=== PATIENT | male | born 1965 | race Caucasian/White ===

== ENCOUNTER → 2016-03-14 | Outpatient (CLI) | payer OTHER ==
[~2016-03-14] MED LIST: CTP2 PO; HYDC25 PO; LISI-461 PO
[2016-03-14 12:17] LABS: BASO % 0.3 %; BASO ABS # 0.03 K/uL (0-0.2); COMPLETE YES; EOS % 3.3 %; HEMATOCRIT 41.2 % (42-52); IG% 0.3 %; LYMPH ABS # 2.67 K/uL (1.2-3.4); MEAN CELL VOLUME 82.7 fL (80-100); MEAN CORPUSCULAR HEMOGLOBIN 28.1 pg (25-34); MEAN PLATELET VOLUME 11.1 fL (7.4-10.4); MONO % 4.9 %; NEUT % 62.2 %; PLATELET COUNT 303 K/uL (130-400); RED BLOOD COUNT 4.98 M/uL (4.7-6.1); WHITE BLOOD COUNT 9.21 K/uL (4.8-10.8)
[2016-03-14 12:38] LABS: URINE APPEARANCE CLEAR (CLEAR); URINE BILIRUBIN NEG (NEG); URINE COLOR YELLOW; URINE EPITHELIAL CELL AUTO 0-5 /lpf (0-5); URINE NITRITE NEG (NEG); URINE PH 5.5 (4.5-7.5); URINE SPECIFIC GRAVITY 1.012 (1.000-1.030); UROBILINOGEN NEG (NEG); ZZUR CULT IF INDIC CLEAN CATCH NO
[2016-03-14 12:42] LABS: MANUAL MICROSCOPIC REQUIRED? NO; REVIEW REQ? NO
[2016-03-14 13:24] LABS: ESTIMATED AVERAGE GLUCOSE 183 mg/dl; HA1C FLAG Normal (Normal)
== END | disposition home or self-care (01) ==
LOC: C.LAB 10:48
PROVIDERS: ATTEND Family Medicine
DX: I10 Essential (primary) hypertension (principal); E11.9 Type 2 diabetes mellitus without complications; E78.5 Hyperlipidemia, unspecified; Z12.5 Encounter for screening for malignant neoplasm of prostate

== ENCOUNTER → 2016-05-25 | Outpatient (CLI) | payer OTHER ==
--- NOTE | 2016-05-26 06:17 | PAP/PSG TECHNICIAN REPORT ---
[facility] Harbor Master Polysomnogram Report Study name: None Report date: 05/26/2016 Study date: 05/25/2016 Referring Physician: DR. RODRIGUEZ Name: MARY COSTA Interpreting Physician: Jose Santos D.O. Date of : 1965 Harbor Master: Mark Christian RPSGT. Sex: Male Age: 50 StudyType: PSG Weight: 196 lbs Height: 50 years, Height 5' 9" BMI: 28.94 Medications: PAROXETINE HCL 20 MG, LORAZEPAM 0.5 MG, IMITREX 100 MG, AMBIEN 10 MG, METFORMIN HCL 500 MG, GLUCOTROL 5 MG, SIMVASTATIN 40 MG, IBUPROFEN, LISINOPRIL 5 MG Patient History PATIENT HAS HISTORY OF SNORING, WITNESSED APNEAS AND BODY MOVEMENTS AT NIGHT. SOMETIMES, HE EXPERIENCES HEADACHES DURING THE DAY. HE IS HERE TODAY FOR AN EVALUATION OF COLLIN. ESS = 2 RM 3 Parameters Monitored NPSG: E1-M2, E2-M1, Fp1-M2, Fp2-M1, F3-M2, F4-M2, F4-M1, C3-M2, C4-M2, C4-M1, O1-M2, O2-M2, O2-M1, T3-M2, T4-M1, P3-M2, P4-M1, CHIN1, CHIN2, HR, EKG, Legs, PFLOW, SNOR, FLOW, CFLOW, Tidal Volume, THOR, ABDO, SpO2, PLTH, CPRESS, ETCO2 Wave, ETCO2, pH Sleep Architecture Sleep Stages Time at Lights Off 10:26:12 PM STAGES Time (min.) TST (%) Time at Lights On 5:16:42 AM Wake 44.5 -- Total Recording Time (TRT) 411.00 min. N1 21.5 6 Total Sleep Period (TSP) 407.5 min. N2 240.0 66 Total Sleep Time (TST) 366.0min. N3 37.5 10 Awake Time 45.0 min. REM 67.0 18 Wake after Sleep Onset 42.0 min. Sleep Efficiency (SE) 89 % Sleep Onset Latency (JOSE LUIS) 2.5 min. Number of Stage 1 Shifts None Awakenings 22 Stage Changes 76 Number of REM periods 5 REM 67.0 18 REM Latency 67.5 min. NREM 299.0 82 Body Position Analysis Supine Right Left Side Prone Vertical Total Sleep Time (min.) 410.5 0.0 0.0 0.00 0.0 0.0 Total Sleep Time (%) 100% 0% 0% 0 0% N/A% Total Sleep Time REM (min.) 67.0 0.0 0.0 None 0.0 0.0 Total Sleep Time NREM (min.) 299.0 0.0 0.0 None 0.0 0.0 Intermittent Wake (min.) 44.5 0.0 0.0 None 0.0 0.0 Total Sleep Period (%) 100% None None None None None Arousals Myoclonus (PLM) * Events Count Index Events Count Index Spontaneous 28 5 Events Awake (PLMW) 52 70.1 Respiratory 18 3.3 Events Asleep w/ Arousal (PLMA) 6 1.0 PLM 6 1 Events Asleep w/o Arousal (PLMS) 67 11.0 Snoring 2 0 Total Asleep 73 12.0 Total 54 9 Total 125 18 Respiratory Analysis * CA OA MA CH H RERA Total Count 12 0 0 0 114 0 126 Index 2.0 0.0 0.0 0 18.7 0 20.7 Mean Duration 17.2 0.0 0.0 0.00 17.4 0.0 17.4 Longest Duration 28.0 0.0 0.0 0.00 0.0 0.0 46.0 Respiratory Event Summary Total Supine ~Supine Right Left Prone REM NREM Apneas Count 12 12 N/A N/A N/A N/A 0 12 Index 2.0 2 N/A N/A N/A N/A 0 2 Hypopneas (4% Desat) Count 114 114 N/A N/A N/A N/A 49 65 Index 18.7 18.7 N/A N/A N/A N/A 43.9 13.0 Apneas & All Hypopneas Count 126 126 N/A N/A N/A N/A 49 77 Index 20.7 21 N/A N/A N/A N/A 43.9 15.5 Respiratory Events (Special Services Director+All Hyp+RERA) Count 126 126 N/A N/A N/A N/A 49 77 Index 20.7 21 N/A N/A N/A N/A 43.9 15.5 Respiratory Related Arousal Count 18 126 N/A N/A N/A N/A 4 16 Index 3.3 3 N/A N/A N/A N/A 4 3 Snoring Analysis Supine Right Left Prone REM NREM Total Snore duration 3.6 min Snores count 123 N/A N/A N/A 98 25 123 Snore mean duration 1.8 Sec Snores index 20 N/A N/A N/A 87.8 5.0 20.2 TST with snoring (%) 1.0% Desaturation Event Summary: Minimum %SpO2 Event Count Mean/Min/Max Duration(sec.) Desaturation Index % Time In Bed > 90 115 18.1 / 6.8 / 59.5 97.6 17.4 86 - 90 97 18.7 / 7.0 / 59.0 20.5 70.2 81 - 85 0 N/A 0.0 12.2 76 - 80 0 N/A 0.0 0.2 71 - 75 0 N/A 0.0 0.0 66 - 70 0 N/A 0.0 0.0 61 - 65 0 N/A 0.0 0.0 56 - 60 0 N/A 0.0 0.0 51 - 55 0 N/A 0.0 0.0 < 50 0 N/A 0.0 0.0 Total REM NREM Awake <50% 0.0 min. 0.0 min. 0.0 min. 0.0 min. 51 - 60% 0.0 min. 0.0 min. 0.0 min. 0.0 min. 61 - 70% 0.0 min. 0.0 min. 0.0 min. 0.0 min. 71 - 80% 0.8 min. 0.8 min. 0.0 min. 0.0 min. 81 - 90% 333.7 min. 57.9 min. 256.9 min. 18.9 min. 91 - 100% 70.7 min. 8.3 min. 42.1 min. 20.4 min. Average 88 88 88 90 Minimum SpO2 78 78 82 83 Desaturation Event Index 22.8 44.8 16.5 36.4 # Desat. Events below 89% 146 49 77 20 Time(%) with Saturation below 89% 59.1 9.1 47.6 2.4 Time(min.) with Saturation below 89% 239.5 36.9 192.8 9.7 Time (mins) REM (mins) NREM (mins) % of TST SpO2 Below 90% 131 49 N82 76.8 SpO2 Below 88% 42 0 0 42 Heart Rate Analysis Min (bpm) Max (bpm) Average (bpm) Awake 52 91 69 NREM 48 79 61 REM 49 77 62 Overall 48 79 61 Supplemental O2 Values Minimum O2 level: None Value Start Time End Time Harbor Master Comments Mr. Costa slept in the supine position. PAC's noted. Leg movements noted. No bruxism noted. Snoring was noted and scored as a 2 on a scale of 1 through 5. (0=no snoring, 5=snoring loud enough to be heard through a closed door or down the [address] way) Mr. Costa awoke to use the restroom 1 time during the night. Mr. Costa stated I slept as well as I do when I am in my own bed. The final report will be interpreted and signed by a sleep physician. The completed physician report will then be placed in the patient medical record. Therapy (cm H2O) 0 TIB (min.) 410.5 TST (min.) 366.0 Sleep Onset (min.) 2.5 REM Onset From Sleep (min.) 67.5 Sleep Efficiency % 89 Wakefulness (%) 11 Wakefulness (min.) 45.0 NREM 1 (%) 6 NREM 1 (min.) 21.5 NREM 2 (%) 66 NREM 2 (min.) 240.0 NREM 3 (%) 10 NREM 3 (min.) 37.5 REM (%) 18 REM (min.) 67.0 # Arousals 54 Arousal Index 9 # Snore 123 Snore Index 20.2 AHI 20.7 AHI Supine 21 AHI Non-Supine N/A NREM AHI 15.5 REM AHI 43.9 RDI 20.7 # Obstructive Apnea 0 # Central Apnea 12 # Mixed Apnea 0 # Hypopneas 114 RERAs 0 Total Respiratory Events 126 Time Below SpO2 89% (min.) 229.7 Mean NREM SpO2 (%) 88 Mean REM SpO2 (%) 88 Mean Sleep SpO2 (%) 88 Min NREM SpO2 (%) 82 Min REM SpO2 (%) 78 Position Supine (min.) 410.5 Position Non-supine (min.) 0.0 LM Index Sleep 12.0 LM Index NREM 7.4 LM Index REM 32.2 Mean Heart Rate (bpm) 61 Min Heart Rate (bpm) 48
--- NOTE | 2016-05-27 19:01 | POLYSOMNOGRAPH REPORT ---
SLEEP STUDY REPORT The patient is referred by Dr. De La Garza. CLINICAL DATA: The patient is a 50-year-old male. His BMI is 28.94. He has a history of snoring, observed apneas, headaches, and body movements at night. The patient has an Melbeta score of 2. SLEEP ARCHITECTURE: The total sleep period was 407.5 minutes and the total sleep time was 366.0 minutes. The sleep efficiency was borderline normal at 89%. Sleep onset latency was short at 2.5 minutes. REM latency was normal at 67.5 minutes. Wake after sleep onset was 42 minutes. Sleep consisted of stage N1 6%, stage N2 66%, stage III 10%, stage REM 18%. AROUSAL DATA: The patient had a total of 54 arousals including 28 spontaneous arousals, 18 respiratory arousals, 6 PLM arousals, and N2 snoring arousals. The arousal index is 9. PERIODIC LIMB MOVEMENTS DATA: The patient had a total of 73 periodic limb movements of sleep for an index of 12.0. There were only 6 arousals associated with these periodic limb movements for a PLM arousal index of 1.0. RESPIRATORY DATA: The patient had a total of 126 respiratory events including 12 central apneas and 114 hypopneas. The hypopneas were scored according to the 4% desaturation rule. The apnea-hypopnea index was moderately elevated at 20.7 events per hour and would be consistent with moderate sleep apnea. The longest apnea was 28 seconds. The mean duration of the hypopneas was 17.4 seconds. OXIMETRY DATA: The average saturation during the night was 88%. The minimum saturation was 78%. The patient had a total of 239.5 minutes with saturations less than 89%. ELECTROCARDIOGRAM: The cardiac rhythm was normal sinus. There were a sparse number of PACs. The cardiac rates ranged from 48-79 beats per minute with an average of 61 beats per minute. BLOCK CUBER COMMENTS: Mr. Costa slept in the supine position. PACs were noted. Leg movements noted. Snoring was noted and was scored as a 2 on a scale of 1 through 5. The patient indicated that he slept as well as he usually does when he is in his own bed. IMPRESSION: 1. Obstructive sleep apnea - moderate. COMMENTS: The patient had a near normal sleepy efficiency. He had a modest number of arousals. His apnea was considered moderate. Most of the events were hypopneas. There was oxygen desaturation throughout much of the night. The patient does take Ambien, which would suggest a history of insomnia. He also takes paroxetine and lorazepam and the history supplied is that he has anxiety. RECOMMENDATIONS: 1. It is advised that the patient be treated with nasal CPAP therapy. Alternatives would be to refer him back for an in-lab CPAP titration versus treatment with an auto CPAP. 2. Weight reduction is advised in light of the mild elevation of body mass index at 28.94. 3. It is suggested that the patient avoid sleeping in the supine position. He spent the entire night supine during the sleep study. 4. An alternative to nasal CPAP therapy could include an oral appliance if the patient did not wish to try nasal CPAP. NATE
== END | disposition home or self-care (01) ==
LOC: C.NEUR 08:43
PROVIDERS: ATTEND Family Medicine
DX: G47.30 Sleep apnea, unspecified (principal)

== ENCOUNTER → 2016-07-22 | Outpatient (CLI) | payer OTHER ==
--- NOTE | 2016-07-23 06:20 | PAP/PSG TECHNICIAN REPORT ---
[facility] Feed Mixer Polysomnogram Report Study name: None Report date: 07/23/2016 Study date: 07/22/2016 Referring Physician: Dr. Irving Bonilla Name: MARY COSTA Interpreting Physician: oJse Santos D.O. Date of : 1965 Feed Mixer: Darcy Crowder RPSGT. Sex: Male Age: 50 StudyType: PSG PAP Weight: 196 lbs Height: 50 years, Height 5' 9" BMI: 28.94 Medications: PAROXETINE HCL 20 MG, LORAZEPAM 0.5 MG, IMITREX 100 MG, AMBIEN 10 MG, METFORMIN HCL 500 MG, GLUCOTROL 5 MG, SIMVASTATIN 40 MG, IBUPROFEN, LISINOPRIL 5 MG Patient History 50 yr-old male here for a new CPAP treatment study. He was found to be positive for COLLIN with an AHI of 20.7. His diagnostic study was on 05/25/16. He chose a Aparicio FX nasal pillows mask size medium from [employer]. The test was started on room air and 4 CMH2O. ETCO2 testing was not utilized during this study. Room 1 He requested to have his test sent to Dr. Irving Bonilla. He has switched to this doctor. Parameters Monitored NPSG: E1-M2, E2-M1, Fp1-M2, Fp2-M1, F3-M2, F4-M2, F4-M1, C3-M2, C4-M2, C4-M1, O1-M2, O2-M2, O2-M1, T3-M2, T4-M1, P3-M2, P4-M1, CHIN1, CHIN2, HR, EKG, Legs, PFLOW, SNOR, FLOW, CFLOW, Tidal Volume, THOR, ABDO, SpO2, PLTH, CPRESS, ETCO2 Wave, ETCO2, pH Sleep Architecture Sleep Stages Time at Lights Off 11:02:40 PM STAGES Time (min.) TST (%) Time at Lights On 5:23:40 AM Wake 30.5 -- Total Recording Time (TRT) 381.00 min. N1 15.0 4 Total Sleep Period (TSP) 359.5 min. N2 277.5 79 Total Sleep Time (TST) 350.5min. N3 0.5 0 Awake Time 30.5 min. REM 57.5 16 Wake after Sleep Onset 20.0 min. Sleep Efficiency (SE) 92 % Sleep Onset Latency (JOSE LUIS) 10.5 min. Number of Stage 1 Shifts None Awakenings 8 Stage Changes 39 Number of REM periods 3 REM 57.5 16 REM Latency 79.0 min. NREM 293.0 84 Body Position Analysis Supine Right Left Side Prone Vertical Total Sleep Time (min.) 381.0 0.0 0.0 0.00 0.0 0.0 Total Sleep Time (%) 100% 0% 0% 0 0% N/A% Total Sleep Time REM (min.) 57.5 0.0 0.0 None 0.0 0.0 Total Sleep Time NREM (min.) 293.0 0.0 0.0 None 0.0 0.0 Intermittent Wake (min.) 30.5 0.0 0.0 None 0.0 0.0 Total Sleep Period (%) 100% None None None None None Arousals Myoclonus (PLM) * Events Count Index Events Count Index Spontaneous 22 4 Events Awake (PLMW) 25 49.2 Respiratory 4 0.9 Events Asleep w/ Arousal (PLMA) 6 1.0 PLM 6 1 Events Asleep w/o Arousal (PLMS) 42 7.2 Snoring 0 0 Total Asleep 48 8.2 Total 32 5 Total 73 11 Respiratory Analysis * CA OA MA CH H RERA Total Count 1 0 0 0 3 4 4 Index 0.2 0.0 0.0 0 0.5 1 1.4 Mean Duration 10.4 0.0 0.0 0.00 18.1 19.0 17.6 Longest Duration 10.4 0.0 0.0 0.00 0.0 20.0 22.2 Respiratory Event Summary Total Supine ~Supine Right Left Prone REM NREM Apneas Count 1 1 N/A N/A N/A N/A 0 1 Index 0.2 0 N/A N/A N/A N/A 0 0 Hypopneas (4% Desat) Count 3 3 N/A N/A N/A N/A 1 2 Index 0.5 0.5 N/A N/A N/A N/A 1.0 0.4 Apneas & All Hypopneas Count 4 4 N/A N/A N/A N/A 1 3 Index 0.7 1 N/A N/A N/A N/A 1.0 0.6 Respiratory Events (Finish Opener+All Hyp+RERA) Count 4 8 N/A N/A N/A N/A 1 3 Index 1.4 1 N/A N/A N/A N/A 2.1 1.2 Respiratory Related Arousal Count 4 8 N/A N/A N/A N/A 1 4 Index 0.9 1 N/A N/A N/A N/A 1 1 Snoring Analysis Supine Right Left Prone REM NREM Total Snore duration 0.7 min Snores count 25 N/A N/A N/A 9 16 25 Snore mean duration 1.7 Sec Snores index 4 N/A N/A N/A 9.4 3.3 4.3 TST with snoring (%) 0.2% Desaturation Event Summary: Minimum %SpO2 Event Count Mean/Min/Max Duration(sec.) Desaturation Index % Time In Bed > 90 8 20.2 / 9.5 / 37.2 1.5 85.2 86 - 90 0 N/A 0.0 14.8 81 - 85 0 N/A 0.0 0.0 76 - 80 0 N/A 0.0 0.0 71 - 75 0 N/A 0.0 0.0 66 - 70 0 N/A 0.0 0.0 61 - 65 0 N/A 0.0 0.0 56 - 60 0 N/A 0.0 0.0 51 - 55 0 N/A 0.0 0.0 < 50 0 N/A 0.0 0.0 Total REM NREM Awake <50% 0.0 min. 0.0 min. 0.0 min. 0.0 min. 51 - 60% 0.0 min. 0.0 min. 0.0 min. 0.0 min. 61 - 70% 0.0 min. 0.0 min. 0.0 min. 0.0 min. 71 - 80% 0.0 min. 0.0 min. 0.0 min. 0.0 min. 81 - 90% 56.4 min. 0.3 min. 53.8 min. 2.3 min. 91 - 100% 324.3 min. 57.2 min. 239.2 min. 27.9 min. Average 92 93 92 94 Minimum SpO2 88 90 88 88 Desaturation Event Index 1.3 3.1 0.6 3.9 # Desat. Events below 89% N/A N/A N/A N/A Time(%) with Saturation below 89% 1.0 0.0 0.9 0.1 Time(min.) with Saturation below 89% 3.7 0.0 3.5 0.2 Time (mins) REM (mins) NREM (mins) % of TST SpO2 Below 90% 4 1 N3 6.6 SpO2 Below 88% 0 0 0 0 Heart Rate Analysis Min (bpm) Max (bpm) Average (bpm) Awake 50 85 61 NREM 47 75 54 REM 49 69 57 Overall 47 75 55 Supplemental O2 Values Minimum O2 level: None Value Start Time End Time Feed Mixer Comments Mr. Costa slept only in the supine position. No cardiac arrhythmias or PLMs noted. No bruxism noted. CPAP was initiated at +4 CMH2O and up-titrated to a level of +5 CMH2O, Cflex 2 which nearly eliminated all respiratory events and snoring. A Aparicio Fx nasal pillows mask size medium from [employer] was used during titration He did not wake up to use the restroom during the night. Mr. Costa stated that he slept better than usual. The final report will be interpreted and signed by a sleep physician. The completed physician report will then be placed in the patient medical record. Therapy Event: Therapy (cm H20) 4 5 Total Time at Pressure (min.) 296.2 84.8 TST at Pressure (min.) 276.7 73.8 # Periods 1 1 Sleep Onset (min.) 10.5 0.0 REM Onset (min.) 89.5 2.8 Sleep Efficiency % 93 87 Wakefulness (%) 6.6 13.0 Wakefulness (min.) 19.5 11.0 NREM 1 (%) 4.7 1.2 NREM 1 (min.) 14.0 1.0 NREM 2 (%) 73.7 69.9 NREM 2 (min.) 218.2 59.3 NREM 3 (%) 0.2 0.0 NREM 3 (min.) 0.5 0.0 REM (%) 14.9 15.9 REM (min.) 44.0 13.5 # Arousals 24 8 Arousal Index 5.2 6.5 # Snore 20 5 Snore Index 4.3 4.1 AHI 0.4 1.6 AHI Supine 0.4 1.6 AHI Non-Supine N/A N/A NREM AHI 0.5 1.0 REM AHI 0.0 4.4 RDI 1.3 1.6 # Obstructive 0 0 # Central Ap 0 1 # Mixed 0 0 # Hypopneas 2 1 RERAS 4 0 Total Respiratory Events 6 2 Time Below SpO2 89.00% (min.) 3.5 0.0 Mean NREM SpO2 (%) 92 93 Mean REM SpO2 (%) 93 94 Mean Sleep SpO2 (%) 92 93 Min NREM SpO2 (%) 88 91 Min REM SpO2 (%) 90 90 Position Supine (min.) 276.7 73.8 Position Non-supine (min.) 0.0 0.0 LM Index Sleep 7.6 10.6 LM Index NREM 3.4 5.0 LM Index REM 30.0 35.6 Mean Heart Rate (bpm) 55 54 Min Heart Rate (bpm) 47 49
--- NOTE | 2016-07-25 12:55 | POLYSOMNOGRAPH REPORT ---
DATE OF STUDY: 07/22/2016. REFERRING PHYSICIAN: Dr. Irving Bonilla. CLINICAL DATA: The patient is a 50-year-old male. He had symptoms of snoring, observed apnea, headaches, and increased body movements during sleep. He underwent a first night sleep study on 05/25/2016. This revealed moderate sleep apnea with apnea hypopnea index of 20.7. He is referred back to the sleep disorder center for a trial of nasal CPAP. This was an in-lab CPAP titration. The patient has a BMI of 28.94. SLEEP ARCHITECTURE: The total sleep period is 359.5 minutes. The total sleep time is 350.5 minutes. The sleep efficiency is normal at 92%. The sleep latency was normal at 10.5 minutes. Wake after sleep onset was 20 minutes. The REM latency was normal at 79 minutes. Sleep consisted of stage N1 4%, stage N2 79%, stage N3 0%, and stage REM 16%. It is notable the patient does take paroxetine which can suppress REM sleep. AROUSAL DATA: The patient had a total of 32 arousals including 22 spontaneous arousals, 4 respiratory arousals, 6 PLM arousals. The arousal index was 5. PLM DATA: The patient had a total of 48 periodic limb movements of sleep for an index of 8.2. He had 6 arousals associated with limb movements for a PLM arousal index of 1.0. EKG: The underlying cardiac rhythm was normal sinus. No arrhythmias were noted. The cardiac rates ranged from 47-75 beats per minute with an average of 55 beats per minute. RESPIRATORY DATA: The patient's nocturnal events were treated with nasal CPAP, which was titrated to a final pressure of 5 cm. For the night he had 1 central apnea and 3 hypopneas. Hypopneas were scored according to the 4% desaturation rule. The apnea hypopnea index was 0.7, which would be normal. In addition, he had 4 RERAs. The mean duration of hypopnea was 18.1 seconds and the mean duration of the apnea was 10.4 seconds. OXIMETRY DATA: The average saturation was 92%. The minimum was 88%. He had no time with saturations less than 88%. LINEMAN COMMENTS: Mr. Costa slept only in the supine position. No bruxism noted. CPAP was initiated at 4 cm of water and up titrated to a level of 5 cm with C-Flex 2. This nearly eliminated all respiratory events and snoring. A Aparicio FX nasal pillows mask size medium was utilized. IMPRESSIONS: Moderate obstructive sleep apnea -- resolved with nasal CPAP at 5 cm. COMMENTS: The patient did very well with nasal CPAP. His sleep architecture was near normal. His REM sleep was decreased mildly but this could be related to the fact that he takes paroxetine. His sleep efficiency was normal. His sleep apnea was well resolved at relatively low CPAP pressures. Oxygenation was normal. RECOMMENDATIONS: 1. It is advised that the patient be started on nasal CPAP at 5 cm with C-Flex. 2. It is suggested that he be ordered a [employer] Aparicio FX nasal pillow mask, size medium. 3. It is suggested that the patient try to avoid sleeping in the supine position as typically there is more respiratory events when the patient is supine. 4. The patient has a mild elevation of body mass index. A weight reduction program is advised as even modest weight loss may result in improvement in sleep disordered breathing. 5. The patient should be seen back between day 31 and day 90 after he receives his CPAP. This is insurance requirements. [facility]
== END | disposition home or self-care (01) ==
LOC: C.NEUR 21:00
PROVIDERS: ATTEND Emergency Medicine Emergency Medical Services
DX: G47.33 Obstructive sleep apnea (adult) (pediatric) (principal)

== ENCOUNTER 2022-08-13 15:14 | Inpatient (IN) ==
[2022-08-13] MEDS ORDERED: LORazepam 0.5 MG TAB PO STA (15:55)
[2022-08-13] MEDS ORDERED: OLANZapine 5 MG TABLET PO ONE (15:55)
--- NOTE | 2022-08-13 16:02 | Emergency Department Note ---
Impression & Plan Paranoia (psychosis), Homicidal ideations ED Provider Note NAME: MARY RAE AGE: 56 SEX: M : 1965 ARRIVES VIA: Police Cruiser INFORMANT: Patient, the police ED PROVIDER(S): Sudeep Saucedo DO CHIEF COMPLAINT: Mental health evaluation HPI: The patient is a 56-year-old male who presented to the emergency department for mental health evaluation. The patient arrived with police. The patient presented with a 302 that was written out by police. I evaluated the patient in the mental health section. The patient appears to have very paranoid thoughts and some delusional thought process. The police outlined a long history of int eractions with this gentleman for the last 2 to 3 months. They have investigated many allegations with this patient and have come up with no definite wrongdoing on anyone else's part. This became very frustrating to the patient. The patient made statements that he was going to "take matters into my own hands". For this reason he was brought to the emergency department for further evaluation. The patient at this time denies having any chest pain or difficulty breathing. He denies having any suicidal ideation. ROS: See above HPI for pertinent positives & negatives. A total of 10 systems reviewed and were otherwise negative. PAST MEDICAL HISTORY: See Below PAST SURGICAL HISTORY: See Below FAMILY HISTORY: See Below SOCIAL HISTORY: See Below HOME MEDICATIONS: See Below ALLERGIES: See Below VITALS: See Below PHYSICAL EXAMINATION: GENERAL: The patient is awake and alert. The patient is somewhat anxious appearing. EYES: The conjunctivae are clear. The pupils are round and reactive. EARS, NOSE, MOUTH AND THROAT: The nose is without any evidence of any deformity. NECK: The neck is nontender and supple. RESPIRATORY: Normal respiratory effort is noted there is no evidence of wheezing rhonchi or rales CARDIOVASCULAR: Regular rate and rhythm noted there no murmurs rubs or gallops normal S1 normal S2. GASTROINTESTINAL: The abdomen is soft. Abdomen is nontender. MUSCULOSKELETAL/EXTREMITIES: There is no evidence of gross deformity full range of motion is noted in the hips and shoulders. SKIN: There is no obvious evidence of any rash. There are no petechiae, pallor or cyanosis noted. NEUROLOGIC: Patient is awake alert and oriented x3. Gait was steady. PSYCH: The patient's affect is very animated. The patient makes good eye contact for part of the evaluation but not all. He is currently denying any suicidal ideation. He does admit that there is 1 person in particular that lives near him that may be causing all of his problems. He does admit that he wanted to confront this person. The patient talks about many issues with his computer system and people that have hacked his computer system recently. MEDICAL DECISION MAKING: The patient is a 56-year-old male who presented to the emergency department for mental health evaluation. The patient presented with a 302 petition. The patient does not have very good insight into his overall condition. He has significant paranoia. He has a tangential thought process on my evaluation. I do not feel the patient has the proper insight for a voluntary psychiatric admission at this time. For this reason I will uphold the 302 petition. The patient was treated with medication in the emergency department to try to help his condition. He was reevaluated multiple times. I discussed his condition with the mental-health piano case and bench assembler. Triage Nursing notes reviewed. Prior medical records reviewed Vital Signs: reviewed and remarkable for elevated blood pressure. Differential diagnosis: Mood disorder, infection, hypoglycemia, electrolyte abnormalities, cardiac sources, intracerebral event, toxicologic, trauma, neurologic, as well as other pathologies. ER treatment provided: See below Diagnostics interpreted by me: ECG: none Cardiac Monitoring: An order was placed for continuous cardiac monitoring. The monitor shows a rate of 88 bpm with sinus rhythm. Laboratory studies: As stated above and show below. Imaging studies: See below. Radiographic imaging was reviewed by myself Consultation(s): The patient was evaluated by the mental health piano case and bench assembler. The 302 petition was reviewed with the mental health piano case and bench assembler. The patient was signed out to Dr. Cadet at change of shift. Please see his note for further disposition and treatment. The patient is currently being evaluated by 3 S. Past Med/Surg History Medical History Depression with anxiety Diabetes type 2, controlled Dyslipidemia Hypothyroidism Laceration of head Overweight Vitamin D deficiency Family History Mother Stroke Father Diabetes Other Hypertension Social History Smoking Status: Former smoker Hx Alcohol Use: No Preferred Language: Kyrgyz Communication Ability: Effective marital status: current occupational status: employed Feels Safe at Home: Yes Gender Identity: Male Allergies Allergies Allergy/AdvReac Type Severity Reaction Status Date / Time cat dander Allergy Mild ITHCY/WATERY Verified 08/13/22 19:44 EYES phenobarbital Allergy Mild BUMPS ON Verified 08/13/22 19:44 TONGUE Dust Allergy Mild ITCHY/WATERY Uncoded 09/01/21 14:00 EYES Home Meds Home Medications Medication Instructions Recorded Confirmed aspirin 81 mg tablet,delayed 81 mg PO DAILY 12/12/18 08/13/22 release (Adult Aspirin Regimen) zolpidem 12.5 mg tablet,extended 12.5 mg PO HS 03/28/19 08/13/22 release,multiphase insulin glargine 100 unit/mL (3 19 unit subcut DAILY 09/01/21 08/13/22 mL) subcutaneous pen (Lantus Solostar U-100 Insulin) venlafaxine 75 mg capsule,extended 75 mg PO DAILY 09/01/21 08/13/22 release 24 hr (Effexor XR) Previous Rx's Medication Instructions Recorded blood sugar diagnostic (True #100 ea 04/23/20 Metrix Glucose Test Strip) blood-glucose meter (True Metrix #100 ea 04/23/20 Glucose Meter) Dexcom G6 Transmitter #1 ea 01/30/22 (blood-glucose transmitter) Dexcom G6 Opal Miner (blood-glucose #1 ea 01/31/22 meter,continuous) Dexcom G6 Sensor (blood-glucose #9 ea 01/31/22 sensor) lisinopril 20 mg tablet 20 mg PO DAILY #90 tabs 01/31/22 BD Ultra-Fine Julianna Pen Needle 32 #100 ea 04/10/22 gauge x 5/32" (pen needle, diabetic) Ozempic 0.25 mg or 0.5 mg (2 0.5 mg (0.4 mL) subcut .COMPLEX 05/03/22 mg/1.5 mL) subcutaneous pen #4.5 mL injector (semaglutide) levothyroxine 100 mcg tablet 100 mcg PO DAILY 30 days #30 tabs 05/03/22 atorvastatin 20 mg tablet 20 mg PO QPM #90 tabs 06/05/22 Results & Data (ED) Vital Signs Vital Signs - 24 hr 08/13/22 15:00 08/13/22 15:00 08/13/22 16:00 Temperature 36.1 C L Temperature Source Oral Pulse Rate 88 Pulse Rhythm Regular Respiratory Rate 16 Respiratory Depth Normal Normal Normal Blood Pressure 143/88 H Blood Pressure Mean 106 Pulse Oximetry 98 Oxygen Delivery Method Room Air Room Air Sepsis Recent Fever Within 48 Hours No Sepsis New/Unexplained Change in Mental Status N/A Sepsis Action Taken by Nursing No Action Required 08/13/22 18:00 Temperature Temperature Source Pulse Rate Pulse Rhythm Respiratory Rate Respiratory Depth Normal Blood Pressure Blood Pressure Mean Pulse Oximetry Oxygen Delivery Method Room Air Sepsis Recent Fever Within 48 Hours Sepsis New/Unexplained Change in Mental Status Sepsis Action Taken by Residential Medications Current Medication List: was personally reviewed by me Laboratory Data Attestation: I reviewed the patient's lab results. 08/13/22 15:38 08/13/22 15:38 Lab Results 08/13/22 08/13/22 08/13/22 Range/Units 15:38 15:38 15:38 WBC 6.90 (4.8-10.8) K/ul RBC 4.55 L (4.70-6.10) M/uL Hgb 13.4 L (14.0-18.0) g/dl Hct 40.5 L (42.0-52.0) % MCV 89.0 (80.0-100.0) fL MCH 29.5 (25.0-34.0) pg MCHC 33.1 (32.0-36.0) g/dL RDW Std Deviation 41.8 (36.4-46.3) fL RDW Coeff of Denisse 12.7 (11.5-14.5) % Plt Count 366 (130-400) K/uL MPV 11.3 (9.4-12.4) fL Immature Gran % (Auto) 0.1 % Neut % (Auto) 62.7 % Lymph % (Auto) 26.4 % [place] % (Auto) 7.1 % Eos % (Auto) 2.8 % Baso % (Auto) 0.9 % Neut # (Auto) 4.33 (1.40-6.50) K/uL Lymph # (Auto) 1.82 (1.2-3.4) K/uL [place] # (Auto) 0.49 (0.11-0.59) K/uL Eos # (Auto) 0.19 (0-0.50) K/uL Baso # (Auto) 0.06 (0-0.2) K/uL Immature Gran # (Auto) 0.01 (0.01-0.20) K/uL Sodium 142 (136-145) mmol/L Potassium 3.8 (3.5-5.1) mmol/L Chloride 107 (98-107) mmol/L Carbon Dioxide 29 (21-32) mmol/L Anion Gap 6 (3-11) BUN 13 (6-23) mg/dl Creatinine 0.96 (0.6-1.4) mg/dl Est Cr Clr Drug Dosing 86.9 ml/min Est GFR ( Amer) 102.7 ml/min Est GFR (Non-Af Amer) 88.6 ml/min BUN/Creatinine Ratio 13.5 (10-20) Glucose 178 H (70-99(Fasting)) mg/dl Calcium 9.3 (8.6-10.3) mg/dl Total Bilirubin 0.6 (0.2-1.0) mg/dl AST 30 (13-39) U/L ALT 25 (7-52) U/L Alkaline Phosphatase 64 (34-104) U/L Total Protein 7.4 (6.0-8.3) gm/dl Albumin 4.5 (3.4-5.0) gm/dl Globulin 2.9 (2.5-4.0) gm/dl Albumin/Globulin Ratio 1.6 (0.9-2) TSH 0.140 L (0.300-4.500) uIu/ml Free T4 0.85 (0.61-1.60) ng/dl Urine Color Urine Appearance (Clear) Urine pH (4.5-7.5) Ur Specific [place] (1.000-1.030) Urine Protein (Negative) Urine Glucose (UA) (Negative) Urine Ketones (Negative) Urine Blood (Negative) Urine Nitrite (Negative) Urine Bilirubin (Negative) Urine Urobilinogen (Negative) Ur Leukocyte Esterase (Negative) Urine WBC (Auto) (0-5) /hpf Urine RBC (Auto) (0-4) /hpf U Hyaline Cast (Auto) (0-5) /lpf U Epithel Cells (Auto) (0-5) /lpf Urine Bacteria (Auto) (Negative) Urine Sperm (None Prsent) Salicylates (3.0-30) mg/dl Urine Opiates Screen (Neg) Ur Methadone, Qual (Neg) Acetaminophen (10-30) ug/ml Urine Barbiturates (Neg) Ur Phencyclidine (PCP) (Neg) U Amphetamin/Meth Scrn (Neg) MDMA (Ecstasy) Screen (Neg) U Benzodiazepines Scrn (Neg) Ur Cocaine Metabolite (Neg) U Marijuana (THC) Screen (Neg) Ethyl Alcohol mg/dL (<10.0) mg/dl SARS-CoV-2, RNA, NAAT (NEGATIVE) 08/13/22 08/13/22 08/13/22 Range/Units 15:38 15:38 16:23 WBC (4.8-10.8) K/ul RBC (4.70-6.10) M/uL Hgb (14.0-18.0) g/dl Hct (42.0-52.0) % MCV (80.0-100.0) fL MCH (25.0-34.0) pg MCHC (32.0-36.0) g/dL RDW Std Deviation (36.4-46.3) fL RDW Coeff of Denisse (11.5-14.5) % Plt Count (130-400) K/uL MPV (9.4-12.4) fL Immature Gran % (Auto) % Neut % (Auto) % Lymph % (Auto) % [place] % (Auto) % Eos % (Auto) % Baso % (Auto) % Neut # (Auto) (1.40-6.50) K/uL Lymph # (Auto) (1.2-3.4) K/uL [place] # (Auto) (0.11-0.59) K/uL Eos # (Auto) (0-0.50) K/uL Baso # (Auto) (0-0.2) K/uL Immature Gran # (Auto) (0.01-0.20) K/uL Sodium (136-145) mmol/L Potassium (3.5-5.1) mmol/L Chloride (98-107) mmol/L Carbon Dioxide (21-32) mmol/L Anion Gap (3-11) BUN (6-23) mg/dl Creatinine (0.6-1.4) mg/dl Est Cr Clr Drug Dosing ml/min Est GFR ( Amer) ml/min Est GFR (Non-Af Amer) ml/min BUN/Creatinine Ratio (10-20) Glucose (70-99(Fasting)) mg/dl Calcium (8.6-10.3) mg/dl Total Bilirubin (0.2-1.0) mg/dl AST (13-39) U/L ALT (7-52) U/L Alkaline Phosphatase (34-104) U/L Total Protein (6.0-8.3) gm/dl Albumin (3.4-5.0) gm/dl Globulin (2.5-4.0) gm/dl Albumin/Globulin Ratio (0.9-2) TSH (0.300-4.500) uIu/ml Free T4 (0.61-1.60) ng/dl Urine Color Yellow Urine Appearance Clear (Clear) Urine pH 6.5 (4.5-7.5) Ur Specific [place] 1.018 (1.000-1.030) Urine Protein 1+ H (Negative) Urine Glucose (UA) Negative (Negative) Urine Ketones Trace H (Negative) Urine Blood Negative (Negative) Urine Nitrite Negative (Negative) Urine Bilirubin Negative (Negative) Urine Urobilinogen Negative (Negative) Ur Leukocyte Esterase Negative (Negative) Urine WBC (Auto) 1-5 (0-5) /hpf Urine RBC (Auto) 0-4 (0-4) /hpf U Hyaline Cast (Auto) 1-5 (0-5) /lpf U Epithel Cells (Auto) 10-20 H (0-5) /lpf Urine Bacteria (Auto) Negative (Negative) Urine Sperm Present A (None Prsent) Salicylates < 3.0 L (3.0-30) mg/dl Urine Opiates Screen (Neg) Ur Methadone, Qual (Neg) Acetaminophen < 3 L (10-30) ug/ml Urine Barbiturates (Neg) Ur Phencyclidine (PCP) (Neg) U Amphetamin/Meth Scrn (Neg) MDMA (Ecstasy) Screen (Neg) U Benzodiazepines Scrn (Neg) Ur Cocaine Metabolite (Neg) U Marijuana (THC) Screen (Neg) Ethyl Alcohol mg/dL < 10.0 (<10.0) mg/dl SARS-CoV-2, RNA, NAAT (NEGATIVE) 08/13/22 08/13/22 Range/Units 16:23 16:28 WBC (4.8-10.8) K/ul RBC (4.70-6.10) M/uL Hgb (14.0-18.0) g/dl Hct (42.0-52.0) % MCV (80.0-100.0) fL MCH (25.0-34.0) pg MCHC (32.0-36.0) g/dL RDW Std Deviation (36.4-46.3) fL RDW Coeff of Denisse (11.5-14.5) % Plt Count (130-400) K/uL MPV (9.4-12.4) fL Immature Gran % (Auto) % Neut % (Auto) % Lymph % (Auto) % [place] % (Auto) % Eos % (Auto) % Baso % (Auto) % Neut # (Auto) (1.40-6.50) K/uL Lymph # (Auto) (1.2-3.4) K/uL [place] # (Auto) (0.11-0.59) K/uL Eos # (Auto) (0-0.50) K/uL Baso # (Auto) (0-0.2) K/uL Immature Gran # (Auto) (0.01-0.20) K/uL Sodium (136-145) mmol/L Potassium (3.5-5.1) mmol/L Chloride (98-107) mmol/L Carbon Dioxide (21-32) mmol/L Anion Gap (3-11) BUN (6-23) mg/dl Creatinine (0.6-1.4) mg/dl Est Cr Clr Drug Dosing ml/min Est GFR ( Amer) ml/min Est GFR (Non-Af Amer) ml/min BUN/Creatinine Ratio (10-20) Glucose (70-99(Fasting)) mg/dl Calcium (8.6-10.3) mg/dl Total Bilirubin (0.2-1.0) mg/dl AST (13-39) U/L ALT (7-52) U/L Alkaline Phosphatase (34-104) U/L Total Protein (6.0-8.3) gm/dl Albumin (3.4-5.0) gm/dl Globulin (2.5-4.0) gm/dl Albumin/Globulin Ratio (0.9-2) TSH (0.300-4.500) uIu/ml Free T4 (0.61-1.60) ng/dl Urine Color Urine Appearance (Clear) Urine pH (4.5-7.5) Ur Specific [place] (1.000-1.030) Urine Protein (Negative) Urine Glucose (UA) (Negative) Urine Ketones (Negative) Urine Blood (Negative) Urine Nitrite (Negative) Urine Bilirubin (Negative) Urine Urobilinogen (Negative) Ur Leukocyte Esterase (Negative) Urine WBC (Auto) (0-5) /hpf Urine RBC (Auto) (0-4) /hpf U Hyaline Cast (Auto) (0-5) /lpf U Epithel Cells (Auto) (0-5) /lpf Urine Bacteria (Auto) (Negative) Urine Sperm (None Prsent) Salicylates (3.0-30) mg/dl Urine Opiates Screen Neg (Neg) Ur Methadone, Qual Neg (Neg) Acetaminophen (10-30) ug/ml Urine Barbiturates Neg (Neg) Ur Phencyclidine (PCP) Neg (Neg) U Amphetamin/Meth Scrn Pos H (Neg) MDMA (Ecstasy) Screen Neg (Neg) U Benzodiazepines Scrn Neg (Neg) Ur Cocaine Metabolite Neg (Neg) U Marijuana (THC) Screen Pos H (Neg) Ethyl Alcohol mg/dL (<10.0) mg/dl SARS-CoV-2, RNA, NAAT NEGATIVE (NEGATIVE) Administered Medications Discontinued Medications Lorazepam (Lorazepam 0.5 Mg Tab) 0.5 mg PO NOW STA Stop: 08/13/22 15:56 Last Admin: 08/13/22 16:13 Dose: 0.5 mg Documented By: LUPE Olanzapine (Olanzapine 5 Mg Tablet) 5 mg PO ONE ONE Stop: 08/13/22 15:56 Last Admin: 08/13/22 16:25 Dose: 5 mg Documented By: LUPE Imaging Data Attestation: I personally reviewed and interpreted this imaging study as follows: My Impression: CT of the head was obtained in the emergency department. My interpretation is no intracranial hemorrhage or mass, final report below. Radiologist's Impression: Head CT 08/13/22 15:[address] DOSE: 625.80 mGy.cm HISTORY: Altered mental status. TECHNIQUE: Multiaxial CT images of the head were performed without the use of intravenous contrast. Automated exposure control was utilized for this study. A dose lowering technique was utilized adhering to the principles of ALARA. Comparison: None. Findings: The paranasal sinuses and mastoid air cells are clear. The calvarium and skull base are intact. The ventricles and sulci are within normal limits. There is no mass, hematoma, midline shift, or acute infarct. Impression: No acute intracranial abnormality. ACT 112: Negative or not required by law. Electronically signed by: González Solano M.D. 08/13/2022 4:32 PM Discharge Plan Visit Data Chief Complaint: Mental Health Evaluation Stated Complaint: MENTAL HEALTH EVAL ED Provider: Jeyson Cadet Discharge Problem: Paranoia (psychosis), Homicidal ideations Patient Disposition: Still a Patient Forms Stand Alone Forms: [facility], Suicide Prevention Resources Prescriptions Prescriptions: No Action (DME) blood-glucose meter [True Metrix Glucose Meter] Misc See Rx Instructions .ROUTE .MEDSUPPLY Qty: 100 3RF Rx Instructions: use to test 1 time daily (DME) True Metrix Glucose Test Strip Strip See Rx Instructions .ROUTE .MEDSUPPLY Qty: 100 3RF Rx Instructions: test 1 time daily (DME) Dexcom G6 Transmitter Device See Rx Instructions .MEDSUPPLY Qty: 1 3RF Rx Instructions: Use as directed for continuous glucose monitoring - change every 90 days (DME) Dexcom G6 Opal Miner Misc See Rx Instructions .MEDSUPPLY Qty: 1 0RF Rx Instructions: Use as directed for continuous glucose monitoring (DME) Dexcom G6 Sensor Device See Rx Instructions .MEDSUPPLY Qty: 9 3RF Rx Instructions: Use as directed for continuous glucose monitoring - Change sensor every 10 days lisinopril 20 mg tablet 20 mg PO DAILY Qty: 90 1RF Rx Instructions: Take with 10 mg tab (DME) pen needle, diabetic [BD Ultra-Fine Julianna Pen Needle] 32 gauge x 5/32" n eedle See Rx Instructions [id number] .MEDSUPPLY Qty: 100 0RF Rx Instructions: use 1needle daily levothyroxine 100 mcg tablet 100 mcg PO DAILY 30 Days Qty: 30 3RF Ozempic 0.25 mg or 0.5 mg(2 mg/1.5 mL) pen injector 0.5 mg subcut .COMPLEX Qty: 4.5 0RF Rx Instructions: 0.5 mg subcut once a week; atorvastatin 20 mg tablet 20 mg PO QPM Qty: 90 0RF aspirin [Adult Aspirin Regimen] 81 mg tablet,delayed release (DR/EC) 81 mg PO DAILY zolpidem 12.5 mg tablet,ext release multiphase 12.5 mg PO HS venlafaxine [Effexor XR] 75 mg capsule,extended release 24hr 75 mg PO DAILY Lantus Solostar U-100 Insulin 100 unit/mL (3 mL) insulin pen 19 unit subcut DAILY Rx Instructions: Inject 18-19 units daily Referrals Referrals: Irving Bonilla M.D. [Primary Care Provider] -
[2022-08-13 16:09] LABS: Basophils # (auto) 0.06 K/uL (0-0.2); Basophils % (auto) 0.9 %; Eosinophils # (auto) 0.19 K/uL (0-0.50); Eosinophils % (auto) 2.8 %; Hematocrit (blood only) 40.5 % (42.0-52.0); Hemoglobin 13.4 g/dl (14.0-18.0); Immature Granulocytes # (auto) 0.01 K/uL (0.01-0.20); Immature Granulocytes % (auto) 0.1 %; Lymphocytes # (auto) 1.82 K/uL (1.2-3.4); Lymphocytes % (auto) 26.4 %; Mean Corpuscular Hemoglobin 29.5 pg (25.0-34.0); Mean Corpuscular Hgb Conc 33.1 g/dL (32.0-36.0); Mean Platelet Volume 11.3 fL (9.4-12.4); Monocytes # (auto) 0.49 K/uL (0.11-0.59); Monocytes % (auto) 7.1 %; Neutrophils # (auto) 4.33 K/uL (1.40-6.50); Neutrophils % (auto) 62.7 %; Platelet Count 366 K/uL (130-400); RDW Coefficient of Variation 12.7 % (11.5-14.5); RDW Standard Deviation 41.8 fL (36.4-46.3); Red Blood Count 4.55 M/uL (4.70-6.10)
[2022-08-13 16:25] LABS: Albumin Globulin Ratio 1.6 (0.9-2); Albumin Level 4.5 gm/dl (3.4-5.0); BUN Creatinine Ratio 13.5 (10-20); Bilirubin,Total 0.6 mg/dl (0.2-1.0); Calcium 9.3 mg/dl (8.6-10.3); Creatinine Clr Calc Pharmacy 86.9 ml/min; Est GFR (African American) 102.7 ml/min; Est GFR (Non-African American) 88.6 ml/min; Globulin 2.9 gm/dl (2.5-4.0); Potassium 3.8 mmol/L (3.5-5.1); Total Protein 7.4 gm/dl (6.0-8.3)
--- NOTE | 2022-08-13 16:34 | CT Scan Report ---
HEAD CT NONCONTRAST CT DOSE: 625.80 mGy.cm HISTORY: Altered mental status. TECHNIQUE: Multiaxial CT images of the head were performed without the use of intravenous contrast. A utomated exposure control was utilized for this study. A dose lowering technique was utilized adheri ng to the principles of ALARA. Comparison: None. Findings: The paranasal sinuses and mastoid air cells are clear. The calvarium and skull base are int act. The ventricles and sulci are within normal limits. There is no mass, hematoma, midline shift, or acute infarct. Impression: No acute intracranial abnormality. ACT 112: Negative or not required by law. Electronically signed by: González Solano M.D. 08/13/2022 4:32 PM
[2022-08-13 16:36] LABS: Acetaminophen < 3 ug/ml (10-30); Salicylate < 3.0 mg/dl (3.0-30)
[2022-08-13 16:39] LABS: Thyroid Stimulating Hormone 0.14 uIu/ml (0.300-4.500)
[2022-08-13 17:11] LABS: Appearance Urine Clear (Clear); Bacteria Urine Automated Negative (Negative); Bilirubin Urine Negative (Negative); Blood Urine Negative (Negative); Color Urine Yellow; Glucose Urine UA Negative (Negative); Ketones Urine Trace (Negative); Leukocyte Esterase Urine Negative (Negative); Nitrite Urine Negative (Negative); Protein Urine 1+ (Negative); RBC Urine Automated 0-4 /hpf (0-4); Specific Gravity Urine 1.018 (1.000-1.030); Urobilinogen Urine Negative (Negative); pH Urine 6.5 (4.5-7.5)
[2022-08-13 17:14] LABS: T4 Free Thyroxine 0.85 ng/dl (0.61-1.60)
[2022-08-13 17:25] LABS: Sperm Urine Present (None Prsent)
[2022-08-13 18:18] LABS: Amphetamines+Metham, Urine Pos (Neg); Barbiturates, Urine Neg (Neg); Benzodiazepine, Urine Neg (Neg); Cocaine, Urine Neg (Neg); MDMA (Ecstacy), Urine Neg (Neg); Methadone, Urine Neg (Neg); Opiate, Urine Neg (Neg); Phencyclidine, Urine Neg (Neg)
--- NOTE | 2022-08-13 20:24 | Emergency Department Note ---
ED Visit Note I assumed care at the change of shift. The 302 petition was being upheld. The patient was felt medically clear. He was being evaluated by 3 S. for potential admission to our [facility] psychiatric floor. The patient was excepted to 3 S. He is being transferred to the floor. No issues to note during the patient's time under my care. .
[2022-08-13] MEDS ORDERED: SODIUM CHLORIDE 0.65% NA SOLN 45 ML (OCEAN) PRN (21:01)
[2022-08-13] MEDS ORDERED: ACETAMINOPHEN 325 MG TAB PO PRN (21:01)
[2022-08-13] MEDS ORDERED: ALUMINUM/MAGNESIUM SUSP 30 ML UDC PO PRN (21:01)
[2022-08-13] MEDS ORDERED: hydrOXYzine HCl 25 MG TAB PO PRN ×2 (21:01)
[2022-08-13] MEDS ORDERED: MAGNESIUM HYDROXIDE SUSP 30 ML UDC PO PRN (21:01)
[2022-08-13] MEDS ORDERED: BISMUTH SUBSALICYLATE LIQD 236 ML PO PRN (21:01)
[2022-08-13] MEDS ORDERED: OLANZapine 5 MG TABLET PO PRN (21:02)
[2022-08-13] MEDS ORDERED: OLANZapine 10 MG/2.1 ML SDV IM PRN (21:06)
[2022-08-13] MEDS: ZOLPIDEM TARTRATE 5 MG TAB PO SCH (21:50)
[2022-08-13] MEDS ORDERED: ZOLPIDEM TARTRATE 10 MG TAB PO SCH (22:00)
--- NOTE | 2022-08-14 11:58 | History & Physical ---
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 (Auto) Urine Sperm Salicylates Urine Opiates Screen Ur Methadone, Qual Acetaminophen Urine Barbiturates Ur Phencyclidine (PCP) U Amphetamines Confirm U Amphetamin/Meth Scrn U Methamphetamin Confrm MDMA (Ecstasy) Screen U Benzodiazepines Scrn Ur Cocaine Metabolite U Marijuana (THC) Screen U Marijuana THC Carboxy Drug Screen Comment Ethyl Alcohol mg/dL SARS-CoV-2, RNA, NAAT 08/13/22 08/13/22 08/13/22 15:38 15:38 16:23 WBC RBC Hgb Hct MCV MCH MCHC RDW Std Deviation RDW Coeff of Denisse Plt Count MPV Immature Gran % (Auto) Neut % (Auto) Lymph % (Auto) [place] % (Auto) Eos % (Auto) Baso % (Auto) Neut # (Auto) Lymph # (Auto) [place] # (Auto) Eos # (Auto) Baso # (Auto) Immature Gran # (Auto) Sodium Potassium Chloride Carbon Dioxide Anion Gap BUN Creatinine Est Cr Clr Drug Dosing Est GFR ( Amer) Est GFR (Non-Af Amer) BUN/Creatinine Ratio Glucose Calcium Total Bilirubin AST ALT Alkaline Phosphatase Total Protein Albumin Globulin Albumin/Globulin Ratio TSH Free T4 Urine Color Yellow Urine Appearance Clear Urine pH 6.5 Ur Specific [place] 1.018 Urine Protein 1+ H Urine Glucose (UA) Negative Urine Ketones Trace H Urine Blood Negative Urine Nitrite Negative Urine Bilirubin Negative Urine Urobilinogen Negative Ur Leukocyte Esterase Negative Urine WBC (Auto) 1-5 Urine RBC (Auto) 0-4 U Hyaline Cast (Auto) 1-5 U Epithel Cells (Auto) 10-20 H Urine Bacteria (Auto) Negative Urine Sperm Present A Salicylates < 3.0 L Urine Opiates Screen Ur Methadone, Qual Acetaminophen < 3 L Urine Barbiturates Ur Phencyclidine (PCP) U Amphetamines Confirm U Amphetamin/Meth Scrn U Methamphetamin Confrm MDMA (Ecstasy) Screen U Benzodiazepines Scrn Ur Cocaine Metabolite U Marijuana (THC) Screen U Marijuana THC Carboxy Drug Screen Comment Ethyl Alcohol mg/dL < 10.0 SARS-CoV-2, RNA, NAAT 08/13/22 08/13/22 08/13/22 16:23 16:23 16:28 WBC RBC Hgb Hct MCV MCH MCHC RDW Std Deviation RDW Coeff of Denisse Plt Count MPV Immature Gran % (Auto) Neut % (Auto) Lymph % (Auto) [place] % (Auto) Eos % (Auto) Baso % (Auto) Neut # (Auto) Lymph # (Auto) [place] # (Auto) Eos # (Auto) Baso # (Auto) Immature Gran # (Auto) Sodium Potassium Chloride Carbon Dioxide Anion Gap BUN Creatinine Est Cr Clr Drug Dosing Est GFR ( Amer) Est GFR (Non-Af Amer) BUN/Creatinine Ratio Glucose Calcium Total Bilirubin AST ALT Alkaline Phosphatase Total Protein Albumin Globulin Albumin/Globulin Ratio TSH Free T4 Urine Color Urine Appearance Urine pH Ur Specific [place] Urine Protein Urine Glucose (UA) Urine Ketones Urine Blood Urine Nitrite Urine Bilirubin Urine Urobilinogen Ur Leukocyte Esterase Urine WBC (Auto) Urine RBC (Auto) U Hyaline Cast (Auto) U Epithel Cells (Auto) Urine Bacteria (Auto) Urine Sperm Salicylates Urine Opiates Screen Neg Ur Methadone, Qual Neg Acetaminophen Urine Barbiturates Neg Ur Phencyclidine (PCP) Neg U Amphetamines Confirm Pending U Amphetamin/Meth Scrn Pos H U Methamphetamin Confrm Pending MDMA (Ecstasy) Screen Neg U Benzodiazepines Scrn Neg Ur Cocaine Metabolite Neg U Marijuana (THC) Screen Pos H U Marijuana THC Carboxy Pending Drug Screen Comment Pending Ethyl Alcohol mg/dL SARS-CoV-2, RNA, NAAT NEGATIVE Current Inpatient Medications Current Inpatient Medications: Current Inpatient Medications Acetaminophen (Acetaminophen 325 Mg Tab) 650 mg PO Q4H PRN PRN Reason: Headache or Minor Fever Stop: 09/12/22 21:00 Al Hydrox/Mg Hydrox/Simethicone (Aluminum/Magnesium Susp 30 Ml Udc) 30 ml PO Q4H PRN PRN Reason: GI Upset Stop: 09/12/22 21:00 Aspirin (Aspirin 81 Mg Ectab) 81 mg PO DAILY MARÍA ELENA Stop: 09/13/22 11:59 Atorvastatin Calcium (Atorvastatin 20 Mg Tab) 20 mg PO QPM MARÍA ELENA Stop: 09/13/22 20:59 Bismuth Subsalicylate (Bismuth Subsalicylate Liqd 236 Ml) 15 ml PO PRN PRN PRN Reason: Loose Stool Stop: 09/12/22 21:00 Hydroxyzine HCl (Hydroxyzine Hcl 25 Mg Tab) 50 mg PO HSZ PRN PRN Reason: Insomnia Stop: 09/12/22 21:00 Hydroxyzine HCl (Hydroxyzine Hcl 25 Mg Tab) 25 mg PO Q4H PRN PRN Reason: Anxiety Stop: 09/12/22 21:00 Levothyroxine Sodium (Levothyroxine Sodium 100 Mcg Tablet) 100 mcg PO DAILY MARÍA ELENA Stop: 09/13/22 11:59 Lisinopril (Lisinopril 20 Mg Tab) 20 mg PO DAILY MARÍA ELENA Stop: 09/13/22 11:59 Magnesium Hydroxide (Magnesium Hydroxide Susp 30 Ml Udc) 30 ml PO DAILY PRN PRN Reason: Constipation Stop: 09/12/22 21:00 Non-Formulary Medication (Semaglutide [Ozempic]) 0.5 mg SQ .COMPLEX MARÍA ELENA Stop: 09/13/22 11:59 Olanzapine (Olanzapine 5 Mg Tablet) 5 mg PO Q8 PRN PRN Reason: psychosis/charisse Stop: 09/12/22 21:01 Olanzapine (Olanzapine 10 Mg/2.1 Ml Sdv) 5 mg IM Q8 PRN PRN Reason: psychosis/charisse if PO refused Stop: 09/12/22 21:59 Risperidone (Risperidone 1 Mg Tablet) 1 mg PO BID MARÍA ELENA Stop: 09/13/22 11:59 Sodium Chloride (Sodium Chloride 0.65% Na Soln 45 Ml ([place])) 1 - 2 sprays NA PRN PRN PRN Reason: Nasal Dryness/Congestion Stop: 09/12/22 21:00 Venlafaxine HCl (Venlafaxine Hcl Xr 150 Mg Capxr) 150 mg PO DAILY MARÍA ELENA Stop: 09/13/22 11:59 Zolpidem Tartrate (Zolpidem Tartrate 5 Mg Tab) 10 mg PO HS MARÍA ELENA Stop: 09/12/22 21:59 Last Admin: 08/13/22 21:50 Dose: 10 mg
[2022-08-14] MEDS: ASPIRIN 81 MG ECTAB PO SCH (12:23)
[2022-08-14] MEDS: VENLAFAXINE HCL XR 150 MG CAPXR PO SCH (12:23)
[2022-08-14] MEDS: LEVOTHYROXINE SODIUM 100 MCG TABLET PO SCH (12:24)
[2022-08-14] MEDS: risperiDONE 1 MG TABLET PO SCH ×2 (12:24→22:34)
[2022-08-14] MEDS: lisinopril 20 MG TAB PO SCH (12:24)
[2022-08-14] MEDS: LANTUS PER UNIT CHARGE SQ SCH (14:42)
[2022-08-14] MEDS: ZOLPIDEM TARTRATE 5 MG TAB PO SCH (22:34)
[2022-08-14] MEDS: ATORVASTATIN 20 MG TAB PO SCH (22:34)
[2022-08-15] MEDS: LEVOTHYROXINE SODIUM 100 MCG TABLET PO SCH (08:52)
[2022-08-15] MEDS: ASPIRIN 81 MG ECTAB PO SCH (08:52)
[2022-08-15] MEDS: risperiDONE 1 MG TABLET PO SCH (08:53)
[2022-08-15] MEDS: LANTUS PER UNIT CHARGE SQ SCH (08:53)
[2022-08-15] MEDS: lisinopril 20 MG TAB PO SCH (08:53)
[2022-08-15] MEDS: VENLAFAXINE HCL XR 150 MG CAPXR PO SCH (08:53)
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
[2022-08-15] MEDS: ATORVASTATIN 20 MG TAB PO SCH (21:35)
[2022-08-15] MEDS: ZOLPIDEM TARTRATE 5 MG TAB PO PRN (21:35)
[2022-08-15] MEDS: OLANZapine 5 MG TABLET PO SCH (21:35)
[2022-08-16 07:34] LABS: Chol HDL Ratio 2.1 (0-5)
[2022-08-16] MEDS: LEVOTHYROXINE SODIUM 100 MCG TABLET PO SCH (07:42)
[2022-08-16] MEDS: ASPIRIN 81 MG ECTAB PO SCH (08:30)
[2022-08-16] MEDS: LANTUS PER UNIT CHARGE SQ SCH (08:31)
[2022-08-16] MEDS: VENLAFAXINE HCL XR 75 MG CAPXR PO SCH (08:31)
[2022-08-16] MEDS: lisinopril 20 MG TAB PO SCH (08:31)
--- NOTE | 2022-08-16 09:39 | Psychiatric Progress Note ---
Date of Service August 16, 2022 Impression / Recommendations Impression Per Dr. Kim: 56 y/o man with no psychiatric history and abrupt onset of persecutory delusions less than 3 months ago. He voices homicidal intent in connection with his delusions and exhibits no insight into why anyone would be worried that he poses a risk. The etiology of this psychosis is currently unknown. He does not present as manic and certainly not as depressed, so psychosis as a mood disorder symptom seems unlikely. 302 commitment which expires 08/18/2022 at 1514. Nearly every aspect of the presentation could be explained by amphetamine use, which could further explain his looking very difference from the photo on his driving license and his report of inexplicably having lost teeth. I am disinclined to accept pt's claim that he doesn't use amphetamines much (and isn't even sure if he's ever used any), especially in light of how reports other aspects of history as compared to contemporaneous observations documented by others. Irrespective of etiology, he is certainly psychotic with systematized persecutory delusions that motivate him to intend homicidal behavior. While systematized delusions often respond to medication to a limited degree and sometimes don't respond at all, it seems clear that we must seek effective medication intervention. I am not particularly concerned about depression right now since he denies symptoms and none are seen. 08/16/2022: Speech less rapid and expansive today, improved sleep with initiation of olanzapine and tolerating this well. Collateral history from his notable for some possible history of mood cycling with depressed episode after his father's in the fall and then recently with increased use of alcohol. He does have two harassment charges due to recent behaviors toward the neighbors. Confirmed with that all guns were removed from the home. Fasting lipid panel reviewed and normal, HbA1c pending. MNPR due to recent delusions, paranoia, recent homicidal statements, and poor sleep (1) Psychotic episode: (2) Dorothy: Plan 08/16/2022: Continue current medications and tx plan. Discontinue venlafaxine ER. 08/15/2022: -discontinue risperidone in favor of more sedating option of olanzapine 15mg HS. Taper Venlafaxine ER given concerns for acute dorothy. 08/14/2022: The patient was admitted to the [facility] (locked inpatient mental health unit) on q15 min checks (behavioral with suicide precautions) for safety. The patient will participate in group, recreational, and milieu therapies and will be offered additional individual and family sessions as clinically appropriate. -risperidone 1 mg PO BID -lab including B12 and folate levels, ESR, RPR, HIV to investigate identifiable causes for recent-onset psychosis. Inventory Assets Strengths: supportive relationships, has local supports, intelligent, employed, Needs: safety and stabilization, medication adjustment, additional coping skills, increased outpatient services Suicide Risk Level Suicide Risk Level: Moderate (q15 min suicide checks) (he denies SI but given paranoia and persecuory delusions at slightly higher risk, feels safe in the hospital and agrees to let nurses know if he feels unable to remain safe or requires additional support) Risk Factors Assessment Male: Yes : Yes Do You Have Access To A Gun?: No Health Problems: No Mental Health Diagnoses: No Substance Use Disorders: Yes Previous Attempt: No Previous Psychiatric Hospitalization: No Protective Factors Assessment : Yes 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 Chief Complaint "I feel pretty good". Review of Systems Sleep Information Total Hours of Sleep: 6 Sleep Comments: Meal Information Percent Meal Consumed - Breakfast: 75 Percent Meal Consumed - Lunch: 50 Percent Meal Consumed - Dinner: 100 Subjective Subjective Patient was seen & assessed and interval progress reviewed with treatment team nursing and social work. Had a good visit with his yesterday. Slept better last night. He disclosed to RN last evening that he has been misuing Adderall. Today reports good effect from the olanzapine, feels he slept well and that it will help "take the edge off" his anger. Expresses regret at recent anger and statements prior to admission noting that previous he was never an aggressive nor angry person. 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 No side effects from taper of venlafaxine. Physical Exam Psychiatric Orientation: alert, oriented x 3 and cooperative Apperance: appropriately dressed and appropriately groomed Eye Contact: good eye contact Motor Behavior: no abnormal motor movements Speech: + loud speech and normal rate/rhythm/volume of speech (less rapid, not as expansive) Affect: euthymic affect Mood: + anxious mood Thought Process: clear/coherent thought process Thought Content: reality based without delusions Suicidal Thoughts: denies suicidal thoughts, denies suicidal plan and denies suicidal intent Homicidal Thoughts: denies homicidal thoughts, denies homicidal plan and denies homicidal intent Hallucinations: no auditory hallucinations and no visual hallucinations Cognition: recent memory grossly intact, remote memory grossly intact, attention grossly intact and language grossly intact Estimated Intelligence: average estimated intelligence Insight: + limited insight Judgment: + limited judgement Vital Signs (Past 24 Hours) Last Vital Signs Temp 36.4 C 08/16/22 06:00 Pulse 60 08/16/22 06:00 Resp 18 08/16/22 06:00 BP 118/76 08/16/22 06:35 Pulse Ox 98 08/16/22 06:00 O2 Del Method Room Air 08/16/22 06:00 Results & Data ([facility]) Laboratory Results Laboratory Results - last 24 hr 08/14/22 08/15/22 08/15/22 13:01 12:31 17:00 POC Glucose 249 H 109 H Estimat Average Glucose Hemoglobin A1c Triglycerides Cholesterol LDL Cholesterol, Calc VLDL Cholesterol, Calc HDL Cholesterol Cholesterol/HDL Ratio HIV (1&2) Ag & Ab Conf NON-REACTIVE 08/15/22 08/16/22 08/16/22 20:46 06:38 06:38 POC Glucose 195 H Estimat Average Glucose Pending Hemoglobin A1c Pending Triglycerides 46 Cholesterol 158 LDL Cholesterol, Calc 74 VLDL Cholesterol, Calc 9 HDL Cholesterol 75 Cholesterol/HDL Ratio 2.1 HIV (1&2) Ag & Ab Conf 08/16/22 08:12 POC Glucose 148 H Estimat Average Glucose Hemoglobin A1c Triglycerides Cholesterol LDL Cholesterol, Calc VLDL Cholesterol, Calc HDL Cholesterol Cholesterol/HDL Ratio HIV (1&2) Ag & Ab Conf Current Inpatient Medications Current Inpatient Medications: Current Inpatient Medications Acetaminophen (Acetaminophen 325 Mg Tab) 650 mg PO Q4H PRN PRN Reason: Headache or Minor Fever Stop: 09/12/22 21:00 Al Hydrox/Mg Hydrox/Simethicone (Aluminum/Magnesium Susp 30 Ml Udc) 30 ml PO Q4H PRN PRN Reason: GI Upset Stop: 09/12/22 21:00 Aspirin (Aspirin 81 Mg Ectab) 81 mg PO DAILY MARÍA ELENA Stop: 09/13/22 11:59 Last Admin: 08/16/22 08:30 Dose: 81 mg Atorvastatin Calcium (Atorvastatin 20 Mg Tab) 20 mg PO QPM MARÍA ELENA Stop: 09/13/22 20:59 Last Admin: 08/15/22 21:35 Dose: 20 mg Bismuth Subsalicylate (Bismuth Subsalicylate Liqd 236 Ml) 15 ml PO PRN PRN PRN Reason: Loose Stool Stop: 09/12/22 21:00 Hydroxyzine HCl (Hydroxyzine Hcl 25 Mg Tab) 50 mg PO HSZ PRN PRN Reason: Insomnia Stop: 09/12/22 21:00 Hydroxyzine HCl (Hydroxyzine Hcl 25 Mg Tab) 25 mg PO Q4H PRN PRN Reason: Anxiety Stop: 09/12/22 21:00 Insulin Glargine (Lantus Per Unit Charge) 20 units SQ DAILY MARÍA ELENA Stop: 09/13/22 13:44 Last Admin: 08/16/22 08:31 Dose: 20 units Levothyroxine Sodium (Levothyroxine Sodium 100 Mcg Tablet) 100 mcg PO DAILYBB [facility] Stop: 09/13/22 11:59 Last Admin: 08/16/22 07:42 Dose: 100 mcg Lisinopril (Lisinopril 20 Mg Tab) 20 mg PO DAILY MARÍA ELENA Stop: 09/13/22 11:59 Last Admin: 08/16/22 08:31 Dose: 20 mg Magnesium Hydroxide (Magnesium Hydroxide Susp 30 Ml Udc) 30 ml PO DAILY PRN PRN Reason: Constipation Stop: 09/12/22 21:00 Olanzapine (Olanzapine 5 Mg Tablet) 5 mg PO Q8 PRN PRN Reason: psychosis/dorothy Stop: 09/12/22 21:01 Olanzapine (Olanzapine 10 Mg/2.1 Ml Sdv) 5 mg IM Q8 PRN PRN Reason: psychosis/dorothy if PO refused Stop: 09/12/22 21:59 Olanzapine (Olanzapine 5 Mg Tablet) 15 mg PO HS MARÍA ELENA Stop: 09/14/22 21:59 Last Admin: 08/15/22 21:35 Dose: 15 mg Sodium Chloride (Sodium Chloride 0.65% Na Soln 45 Ml ([place])) 1 - 2 sprays NA PRN PRN PRN Reason: Nasal Dryness/Congestion Stop: 09/12/22 21:00 Venlafaxine HCl (Venlafaxine Hcl Xr 75 Mg Capxr) 75 mg PO DAILY MARÍA ELENA Stop: 09/15/22 08:59 Last Admin: 08/16/22 08:31 Dose: 75 mg Zolpidem Tartrate (Zolpidem Tartrate 5 Mg Tab) 10 mg PO HS PRN PRN Reason: Insomnia Stop: 09/12/22 21:59 Last Admin: 08/15/22 21:35 Dose: 10 mg Mental Health & Subst Abuse Tx Therapist Name of Therapist: None Filbert Grower Name of Filbert Grower: Denies Post Discharge Appointments Primary Care Physician Name Of Family Doctor/PCP: Dr Bonilla Primary [facility] Contact Information Discharge Discharge Address: [address] [place] [id number]
[2022-08-16] MEDS: OLANZapine 5 MG TABLET PO SCH (21:13)
[2022-08-16] MEDS: ATORVASTATIN 20 MG TAB PO SCH (21:13)
[2022-08-16] MEDS: ZOLPIDEM TARTRATE 5 MG TAB PO PRN (23:00)
[2022-08-17 07:53] LABS: Estimated Average Glucose 146 mg/dl; Hemoglobin A1C 6.7 % (4.5-5.6)
[2022-08-17] MEDS: ASPIRIN 81 MG ECTAB PO SCH (08:15)
[2022-08-17] MEDS: LEVOTHYROXINE SODIUM 100 MCG TABLET PO SCH (08:15)
[2022-08-17] MEDS: lisinopril 20 MG TAB PO SCH (08:16)
[2022-08-17] MEDS: VENLAFAXINE HCL XR 75 MG CAPXR PO SCH (08:16)
[2022-08-17] MEDS: LANTUS PER UNIT CHARGE SQ SCH (08:22)
--- NOTE | 2022-08-17 11:55 | Psychiatric Progress Note ---
Date of Service August 17, 2022 Impression / Recommendations Impression Per Dr. Kim: 56 y/o man with no psychiatric history and abrupt onset of persecutory delusions less than 3 months ago. He voices homicidal intent in connection with his delusions and exhibits no insight into why anyone would be worried that he poses a risk. The etiology of this psychosis is currently unknown. He does not present as manic and certainly not as depressed, so psychosis as a mood disorder symptom seems unlikely. 302 commitment which expires 08/18/2022 at 1514. Nearly every aspect of the presentation could be explained by amphetamine use, which could further explain his looking very difference from the photo on his driving license and his report of inexplicably having lost teeth. I am disinclined to accept pt's claim that he doesn't use amphetamines much (and isn't even sure if he's ever used any), especially in light of how reports other aspects of history as compared to contemporaneous observations documented by others. Irrespective of etiology, he is certainly psychotic with systematized persecutory delusions that motivate him to intend homicidal behavior. While systematized delusions often respond to medication to a limited degree and sometimes don't respond at all, it seems clear that we must seek effective medication intervention. I am not particularly concerned about depression right now since he denies symptoms and none are seen. 08/17/2022: Didn't sleep quite as well last night but his mood is stabilizing with improved insight about recent symptoms and contribution from acute charisse. He continues to tolerate olanzapine well and actually self-initiates request to increase this tonight as he's finding it very helpful for mood stabilization. Offered option to sign in voluntarily since his 302 expires tomorrow afternoon but he declines this as he feels he will be ready tomorrow for discharge. Reviewed HbA1c result of 6.7% which he is pleased with given his diagnosis of T2DM and goal of keeping his HbA1c in the 6 % range. MNPR due to poor sleep, focus on improving sleep (1) Psychotic episode: (2) Charisse: Plan 08/17/2022: Increase olanzapine to 20mg HS 08/16/2022: Continue current medications and tx plan. Discontinue venlafaxine ER. 08/15/2022: -discontinue risperidone in favor of more sedating option of olanzapine 15mg HS. Taper Venlafaxine ER given concerns for acute charisse. 08/14/2022: The patient was admitted to the [facility] ([facility]) on q15 min checks (behavioral with suicide precautions) for safety. The patient will participate in group, recreational, and milieu therapies and will be offered additional individual and family sessions as clinically appropriate. -risperidone 1 mg PO BID -lab including B12 and folate levels, ESR, RPR, HIV to investigate identifiable causes for recent-onset psychosis. Inventory Assets Strengths: supportive relationships, has local supports, intelligent, employed, Needs: safety and stabilization, medication adjustment, additional coping skills, increased outpatient services Suicide Risk Level Suicide Risk Level: Moderate (q15 min suicide checks) (he denies SI but given paranoia and persecuory delusions at slightly higher risk, feels safe in the hospital and agrees to let nurses know if he feels unable to remain safe or requires additional support) Risk Factors Assessment Male: Yes : Yes Do You Have Access To A Gun?: No Health Problems: No Mental Health Diagnoses: No Substance Use Disorders: Yes Previous Attempt: No Previous Psychiatric Hospitalization: No Protective Factors Assessment : Yes 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 Chief Complaint "I'm good". Review of Systems Sleep Information Total Hours of Sleep: 5 Sleep Comments: PRN Estevanien taken at 2300 Meal Information Percent Meal Consumed - Breakfast: 100 Percent Meal Consumed - Lunch: 75 Percent Meal Consumed - Dinner: 100 Subjective Subjective Patient was seen & assessed and interval progress reviewed with treatment team nursing and social work. Slept not quite as well last night, he attributes this to checks overnight. He continues to find olanzapine very beneficial and asks about increasing the dose given perceived benefit in "calming me down" and "taking the edge off" during the day and no side effects. Had a family meeting with his which went well. He feels that charisse is likely an accurate description for what he's been experiencing over the last few months since mid May. He plans to avoid substance use after discharge. Physical Exam Psychiatric Orientation: alert, oriented x 3 and cooperative Apperance: appropriately dressed and appropriately groomed Eye Contact: good eye contact Motor Behavior: no abnormal motor movements Speech: + loud speech and normal rate/rhythm/volume of speech (less rapid, not as expansive) Affect: euthymic affect Mood: + anxious mood; no depressed mood, no irritable mood and no angry mood Thought Process: goal directed thought process Thought Content: reality based without delusions Suicidal Thoughts: denies suicidal thoughts, denies suicidal plan and denies suicidal intent Homicidal Thoughts: denies homicidal thoughts, denies homicidal plan and denies homicidal intent Hallucinations: no auditory hallucinations and no visual hallucinations Cognition: recent memory grossly intact, remote memory grossly intact, attention grossly intact and language grossly intact Estimated Intelligence: average estimated intelligence Insight: + fair insight Judgment: + fair judgement Vital Signs (Past 24 Hours) Last Vital Signs Temp 36.5 C 08/17/22 06:40 Pulse 74 08/17/22 06:41 Resp 18 08/17/22 06:40 BP 109/65 08/17/22 06:41 Pulse Ox 98 08/16/22 06:00 O2 Del Method Room Air 08/16/22 06:00 Results & Data ([facility]) Laboratory Results Laboratory Results - last 24 hr 08/16/22 08/16/22 08/16/22 06:38 12:10 17:02 POC Glucose 262 H 131 H Estimat Average Glucose 146 Hemoglobin A1c 6.7 H 08/16/22 08/17/22 21:53 08:10 POC Glucose 282 H 145 H Estimat Average Glucose Hemoglobin A1c Current Inpatient Medications Current Inpatient Medications: Current Inpatient Medications Acetaminophen (Acetaminophen 325 Mg Tab) 650 mg PO Q4H PRN PRN Reason: Headache or Minor Fever Stop: 09/12/22 21:00 Al Hydrox/Mg Hydrox/Simethicone (Aluminum/Magnesium Susp 30 Ml Udc) 30 ml PO Q4H PRN PRN Reason: GI Upset Stop: 09/12/22 21:00 Aspirin (Aspirin 81 Mg Ectab) 81 mg PO DAILY MARÍA ELENA Stop: 09/13/22 11:59 Last Admin: 08/17/22 08:15 Dose: 81 mg Atorvastatin Calcium (Atorvastatin 20 Mg Tab) 20 mg PO QPM MARÍA ELENA Stop: 09/13/22 20:59 Last Admin: 08/16/22 21:13 Dose: 20 mg Bismuth Subsalicylate (Bismuth Subsalicylate Liqd 236 Ml) 15 ml PO PRN PRN PRN Reason: Loose Stool Stop: 09/12/22 21:00 Hydroxyzine HCl (Hydroxyzine Hcl 25 Mg Tab) 50 mg PO HSZ PRN PRN Reason: Insomnia Stop: 09/12/22 21:00 Hydroxyzine HCl (Hydroxyzine Hcl 25 Mg Tab) 25 mg PO Q4H PRN PRN Reason: Anxiety Stop: 09/12/22 21:00 Insulin Glargine (Lantus Per Unit Charge) 20 units SQ DAILY MARÍA ELENA Stop: 09/13/22 13:44 Last Admin: 08/17/22 08:22 Dose: 20 units Levothyroxine Sodium (Levothyroxine Sodium 100 Mcg Tablet) 100 mcg PO DAILYBB [facility] Stop: 09/13/22 11:59 Last Admin: 08/17/22 08:15 Dose: 100 mcg Lisinopril (Lisinopril 20 Mg Tab) 20 mg PO DAILY MARÍA ELENA Stop: 09/13/22 11:59 Last Admin: 08/17/22 08:16 Dose: 20 mg Magnesium Hydroxide (Magnesium Hydroxide Susp 30 Ml Udc) 30 ml PO DAILY PRN PRN Reason: Constipation Stop: 09/12/22 21:00 Olanzapine (Olanzapine 5 Mg Tablet) 5 mg PO Q8 PRN PRN Reason: psychosis/charisse Stop: 09/12/22 21:01 Olanzapine (Olanzapine 10 Mg/2.1 Ml Sdv) 5 mg IM Q8 PRN PRN Reason: psychosis/charisse if PO refused Stop: 09/12/22 21:59 Olanzapine (Olanzapine 5 Mg Tablet) 15 mg PO HS MARÍA ELENA Stop: 09/14/22 21:59 Last Admin: 08/16/22 21:13 Dose: 15 mg Sodium Chloride (Sodium Chloride 0.65% Na Soln 45 Ml ([place])) 1 - 2 sprays NA PRN PRN PRN Reason: Nasal Dryness/Congestion Stop: 09/12/22 21:00 Zolpidem Tartrate (Zolpidem Tartrate 5 Mg Tab) 10 mg PO HS PRN PRN Reason: Insomnia Stop: 09/12/22 21:59 Last Admin: 08/16/22 23:00 Dose: 10 mg Mental Health & Subst Abuse Tx Psychiatrist Name of Psychiatrist: Maribel Jordan - Brittany Joaquin Psychiatrist's Date Of Appointment With Psychiatric Provider: 08/28/22 Time of Appointment with Psychiatrist: 10:00 AM - please bring insurance card Psychiatric Appointment Comment: [address] [facility] [address] Therapist Name of Therapist: [facility] Therapist's Therapy Appointment Comment: [address], [address], [facility] [address] Ticket Taker Name of Ticket Taker: Denies Post Discharge Appointments Primary Care Physician Name Of Family Doctor/PCP: Dr. Bonilla Primary Care Provider Appointment Comment: Please follow up with PCP as needed. Specialist Name of Specialist: Endocrinology - Dr. Palacios Phone Number for Specialist: [phone] Date of Appointment with Specialist: 08/31/22 Time of Appointment with Specialist: 1:30 PM Specialty Appointment Comment: [address]lic[address] [place], [facility] [address] Contact Information Discharge Discharge Address: [address] [place] [id number]
[2022-08-17] MEDS: ATORVASTATIN 20 MG TAB PO SCH (21:02)
[2022-08-17] MEDS ORDERED: OLANZapine 20 MG TABLET PO SCH (22:00)
[2022-08-17] MEDS: ZOLPIDEM TARTRATE 5 MG TAB PO PRN (23:02)
[2022-08-18] MEDS: ASPIRIN 81 MG ECTAB PO SCH (08:46)
[2022-08-18] MEDS: LANTUS PER UNIT CHARGE SQ SCH (08:46)
[2022-08-18] MEDS: LEVOTHYROXINE SODIUM 100 MCG TABLET PO SCH (08:46)
[2022-08-18] MEDS: lisinopril 20 MG TAB PO SCH (08:46)
[2022-08-18] MEDS ORDERED: DESTROY THIS MEDICATION ONE (08:50)
--- NOTE | 2022-08-18 08:58 | Discharge Summary ---
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 Urine Opiates Screen Neg Ur Methadone, Qual Neg Acetaminophen Urine Barbiturates Neg Ur Phencyclidine (PCP) Neg U Amphetamin/Meth Scrn Pos H MDMA (Ecstasy) Screen Neg U Benzodiazepines Scrn Neg Ur Cocaine Metabolite Neg U Marijuana (THC) Screen Pos H Ethyl Alcohol mg/dL RPR HIV (1&2) Ag & Ab Conf SARS-CoV-2, RNA, NAAT NEGATIVE 08/14/22 08/14/22 08/14/22 13:01 13:01 13:01 WBC RBC Hgb Hct MCV MCH MCHC RDW Std Deviation RDW Coeff of Denisse Plt Count MPV Immature Gran % (Auto) Neut % (Auto) Lymph % (Auto) Waldo % (Auto) Eos % (Auto) Baso % (Auto) Neut # (Auto) Lymph # (Auto) Waldo # (Auto) Eos # (Auto) Baso # (Auto) Immature Gran # (Auto) ESR Sodium Potassium Chloride Carbon Dioxide Anion Gap BUN Creatinine Est Cr Clr Drug Dosing Est GFR ( Amer) Est GFR (Non-Af Amer) BUN/Creatinine Ratio Glucose POC Glucose Estimat Average Glucose Hemoglobin A1c Calcium Total Bilirubin AST ALT Alkaline Phosphatase Total Protein Albumin Globulin Albumin/Globulin Ratio Triglycerides Cholesterol LDL Cholesterol, Calc VLDL Cholesterol, Calc HDL Cholesterol Cholesterol/HDL Ratio Vitamin B12 500 Folate 17.44 TSH Free T4 Urine Color Urine Appearance Urine pH Ur Specific [place] Urine Protein Urine Glucose (UA) Urine Ketones Urine Blood Urine Nitrite Urine Bilirubin Urine Urobilinogen Ur Leukocyte Esterase Urine WBC (Auto) Urine RBC (Auto) U Hyaline Cast (Auto) U Epithel Cells (Auto) Urine Bacteria (Auto) Urine Sperm Salicylates Urine Opiates Screen Ur Methadone, Qual Acetaminophen Urine Barbiturates Ur Phencyclidine (PCP) U Amphetamin/Meth Scrn MDMA (Ecstasy) Screen U Benzodiazepines Scrn Ur Cocaine Metabolite U Marijuana (THC) Screen Ethyl Alcohol mg/dL RPR Nonreactive HIV (1&2) Ag & Ab Conf NON-REACTIVE SARS-CoV-2, RNA, NAAT 08/14/22 08/14/22 08/14/22 13:42 17:30 20:50 WBC RBC Hgb Hct MCV MCH MCHC RDW Std Deviation RDW Coeff of Denisse Plt Count MPV Immature Gran % (Auto) Neut % (Auto) Lymph % (Auto) Waldo % (Auto) Eos % (Auto) Baso % (Auto) Neut # (Auto) Lymph # (Auto) Waldo # (Auto) Eos # (Auto) Baso # (Auto) Immature Gran # (Auto) ESR Sodium Potassium Chloride Carbon Dioxide Anion Gap BUN Creatinine Est Cr Clr Drug Dosing Est GFR ( Amer) Est GFR (Non-Af Amer) BUN/Creatinine Ratio Glucose POC Glucose 180 H 168 H 284 H Estimat Average Glucose Hemoglobin A1c Calcium Total Bilirubin AST ALT Alkaline Phosphatase Total Protein Albumin Globulin Albumin/Globulin Ratio Triglycerides Cholesterol LDL Cholesterol, Calc VLDL Cholesterol, Calc HDL Cholesterol Cholesterol/HDL Ratio Vitamin B12 Folate TSH Free T4 Urine Color Urine Appearance Urine pH Ur Specific [place] Urine Protein Urine Glucose (UA) Urine Ketones Urine Blood Urine Nitrite Urine Bilirubin Urine Urobilinogen Ur Leukocyte Esterase Urine WBC (Auto) Urine RBC (Auto) U Hyaline Cast (Auto) U Epithel Cells (Auto) Urine Bacteria (Auto) Urine Sperm Salicylates Urine Opiates Screen Ur Methadone, Qual Acetaminophen Urine Barbiturates Ur Phencyclidine (PCP) U Amphetamin/Meth Scrn MDMA (Ecstasy) Screen U Benzodiazepines Scrn Ur Cocaine Metabolite U Marijuana (THC) Screen Ethyl Alcohol mg/dL RPR HIV (1&2) Ag & Ab Conf SARS-CoV-2, RNA, NAAT 08/15/22 08/15/22 08/15/22 08:46 12:31 17:00 WBC RBC Hgb Hct MCV MCH MCHC RDW Std Deviation RDW Coeff of Denisse Plt Count MPV Immature Gran % (Auto) Neut % (Auto) Lymph % (Auto) Waldo % (Auto) Eos % (Auto) Baso % (Auto) Neut # (Auto) Lymph # (Auto) Waldo # (Auto) Eos # (Auto) Baso # (Auto) Immature Gran # (Auto) ESR Sodium Potassium Chloride Carbon Dioxide Anion Gap BUN Creatinine Est Cr Clr Drug Dosing Est GFR ( Amer) Est GFR (Non-Af Amer) BUN/Creatinine Ratio Glucose POC Glucose 183 H 249 H 109 H Estimat Average Glucose Hemoglobin A1c Calcium Total Bilirubin AST ALT Alkaline Phosphatase Total Protein Albumin Globulin Albumin/Globulin Ratio Triglycerides Cholesterol LDL Cholesterol, Calc VLDL Cholesterol, Calc HDL Cholesterol Cholesterol/HDL Ratio Vitamin B12 Folate TSH Free T4 Urine Color Urine Appearance Urine pH Ur Specific [place] Urine Protein Urine Glucose (UA) Urine Ketones Urine Blood Urine Nitrite Urine Bilirubin Urine Urobilinogen Ur Leukocyte Esterase Urine WBC (Auto) Urine RBC (Auto) U Hyaline Cast (Auto) U Epithel Cells (Auto) Urine Bacteria (Auto) Urine Sperm Salicylates Urine Opiates Screen Ur Methadone, Qual Acetaminophen Urine Barbiturates Ur Phencyclidine (PCP) U Amphetamin/Meth Scrn MDMA (Ecstasy) Screen U Benzodiazepines Scrn Ur Cocaine Metabolite U Marijuana (THC) Screen Ethyl Alcohol mg/dL RPR HIV (1&2) Ag & Ab Conf SARS-CoV-2, RNA, NAAT 08/15/22 08/16/22 08/16/22 20:46 06:38 06:38 WBC RBC Hgb Hct MCV MCH MCHC RDW Std Deviation RDW Coeff of Denisse Plt Count MPV Immature Gran % (Auto) Neut % (Auto) Lymph % (Auto) Waldo % (Auto) Eos % (Auto) Baso % (Auto) Neut # (Auto) Lymph # (Auto) Waldo # (Auto) Eos # (Auto) Baso # (Auto) Immature Gran # (Auto) ESR Sodium Potassium Chloride Carbon Dioxide Anion Gap BUN Creatinine Est Cr Clr Drug Dosing Est GFR ( Amer) Est GFR (Non-Af Amer) BUN/Creatinine Ratio Glucose POC Glucose 195 H Estimat Average Glucose 146 Hemoglobin A1c 6.7 H Calcium Total Bilirubin AST ALT Alkaline Phosphatase Total Protein Albumin Globulin Albumin/Globulin Ratio Triglycerides 46 Cholesterol 158 LDL Cholesterol, Calc 74 VLDL Cholesterol, Calc 9 HDL Cholesterol 75 Cholesterol/HDL Ratio 2.1 Vitamin B12 Folate TSH Free T4 Urine Color Urine Appearance Urine pH Ur Specific [place] Urine Protein Urine Glucose (UA) Urine Ketones Urine Blood Urine Nitrite Urine Bilirubin Urine Urobilinogen Ur Leukocyte Esterase Urine WBC (Auto) Urine RBC (Auto) U Hyaline Cast (Auto) U Epithel Cells (Auto) Urine Bacteria (Auto) Urine Sperm Salicylates Urine Opiates Screen Ur Methadone, Qual Acetaminophen Urine Barbiturates Ur Phencyclidine (PCP) U Amphetamin/Meth Scrn MDMA (Ecstasy) Screen U Benzodiazepines Scrn Ur Cocaine Metabolite U Marijuana (THC) Screen Ethyl Alcohol mg/dL RPR HIV (1&2) Ag & Ab Conf SARS-CoV-2, RNA, NAAT 08/16/22 08/16/22 08/16/22 08:12 12:10 17:02 WBC RBC Hgb Hct MCV MCH MCHC RDW Std Deviation RDW Coeff of Denisse Plt Count MPV Immature Gran % (Auto) Neut % (Auto) Lymph % (Auto) Waldo % (Auto) Eos % (Auto) Baso % (Auto) Neut # (Auto) Lymph # (Auto) Waldo # (Auto) Eos # (Auto) Baso # (Auto) Immature Gran # (Auto) ESR Sodium Potassium Chloride Carbon Dioxide Anion Gap BUN Creatinine Est Cr Clr Drug Dosing Est GFR ( Amer) Est GFR (Non-Af Amer) BUN/Creatinine Ratio Glucose POC Glucose 148 H 262 H 131 H Estimat Average Glucose Hemoglobin A1c Calcium Total Bilirubin AST ALT Alkaline Phosphatase Total Protein Albumin Globulin Albumin/Globulin Ratio Triglycerides Cholesterol LDL Cholesterol, Calc VLDL Cholesterol, Calc HDL Cholesterol Cholesterol/HDL Ratio Vitamin B12 Folate TSH Free T4 Urine Color Urine Appearance Urine pH Ur Specific [place] Urine Protein Urine Glucose (UA) Urine Ketones Urine Blood Urine Nitrite Urine Bilirubin Urine Urobilinogen Ur Leukocyte Esterase Urine WBC (Auto) Urine RBC (Auto) U Hyaline Cast (Auto) U Epithel Cells (Auto) Urine Bacteria (Auto) Urine Sperm Salicylates Urine Opiates Screen Ur Methadone, Qual Acetaminophen Urine Barbiturates Ur Phencyclidine (PCP) U Amphetamin/Meth Scrn MDMA (Ecstasy) Screen U Benzodiazepines Scrn Ur Cocaine Metabolite U Marijuana (THC) Screen Ethyl Alcohol mg/dL RPR HIV (1&2) Ag & Ab Conf SARS-CoV-2, RNA, NAAT 08/16/22 08/17/22 08/17/22 21:53 08:10 12:07 WBC RBC Hgb Hct MCV MCH MCHC RDW Std Deviation RDW Coeff of Denisse Plt Count MPV Immature Gran % (Auto) Neut % (Auto) Lymph % (Auto) Waldo % (Auto) Eos % (Auto) Baso % (Auto) Neut # (Auto) Lymph # (Auto) [place]do # (Auto) Eos # (Auto) Baso # (Auto) Immature Gran # (Auto) ESR Sodium Potassium Chloride Carbon Dioxide Anion Gap BUN Creatinine Est Cr Clr Drug Dosing Est GFR ( Amer) Est GFR (Non-Af Amer) BUN/Creatinine Ratio Glucose POC Glucose 282 H 145 H 168 H Estimat Average Glucose Hemoglobin A1c Calcium Total Bilirubin AST ALT Alkaline Phosphatase Total Protein Albumin Globulin Albumin/Globulin Ratio Triglycerides Cholesterol LDL Cholesterol, Calc VLDL Cholesterol, Calc HDL Cholesterol Cholesterol/HDL Ratio Vitamin B12 Folate TSH Free T4 Urine Color Urine Appearance Urine pH Ur Specific [place] Urine Protein Urine Glucose (UA) Urine Ketones Urine Blood Urine Nitrite Urine Bilirubin Urine Urobilinogen Ur Leukocyte Esterase Urine WBC (Auto) Urine RBC (Auto) U Hyaline Cast (Auto) U Epithel Cells (Auto) Urine Bacteria (Auto) Urine Sperm Salicylates Urine Opiates Screen Ur Methadone, Qual Acetaminophen Urine Barbiturates Ur Phencyclidine (PCP) U Amphetamin/Meth Scrn MDMA (Ecstasy) Screen U Benzodiazepines Scrn Ur Cocaine Metabolite U Marijuana (THC) Screen Ethyl Alcohol mg/dL RPR HIV (1&2) Ag & Ab Conf SARS-CoV-2, RNA, NAAT 08/17/22 08/17/22 08/18/22 17:03 20:47 08:03 WBC RBC Hgb Hct MCV MCH MCHC RDW Std Deviation RDW Coeff of Denisse Plt Count MPV Immature Gran % (Auto) Neut % (Auto) Lymph % (Auto) Waldo % (Auto) Eos % (Auto) Baso % (Auto) Neut # (Auto) Lymph # (Auto) Waldo # (Auto) Eos # (Auto) Baso # (Auto) Immature Gran # (Auto) ESR Sodium Potassium Chloride Carbon Dioxide Anion Gap BUN Creatinine Est Cr Clr Drug Dosing Est GFR ( Amer) Est GFR (Non-Af Amer) BUN/Creatinine Ratio Glucose POC Glucose 122 H 205 H 131 H Estimat Average Glucose Hemoglobin A1c Calcium Total Bilirubin AST ALT Alkaline Phosphatase Total Protein Albumin Globulin Albumin/Globulin Ratio Triglycerides Cholesterol LDL Cholesterol, Calc VLDL Cholesterol, Calc HDL Cholesterol Cholesterol/HDL Ratio Vitamin B12 Folate TSH Free T4 Urine Color Urine Appearance Urine pH Ur Specific [place] Urine Protein Urine Glucose (UA) Urine Ketones Urine Blood Urine Nitrite Urine Bilirubin Urine Urobilinogen Ur Leukocyte Esterase Urine WBC (Auto) Urine RBC (Auto) U Hyaline Cast (Auto) U Epithel Cells (Auto) Urine Bacteria (Auto) Urine Sperm Salicylates Urine Opiates Screen Ur Methadone, Qual Acetaminophen Urine Barbiturates Ur Phencyclidine (PCP) U Amphetamin/Meth Scrn MDMA (Ecstasy) Screen U Benzodiazepines Scrn Ur Cocaine Metabolite U Marijuana (THC) Screen Ethyl Alcohol mg/dL RPR HIV (1&2) Ag & Ab Conf SARS-CoV-2, RNA, NAAT Hospital Course (1) Charisse: (2) Bipolar affective disorder, current episode manic: Plan 08/17/2022: Increase olanzapine to 20mg HS 08/16/2022: Continue current medications and tx plan. Discontinue venlafaxine ER. 08/15/2022: -discontinue risperidone in favor of more sedating option of olanzapine 15mg HS. Taper Venlafaxine ER given concerns for acute charisse. 08/14/2022: The patient was admitted to the [facility] ([facility] inpatient mental health unit) on q15 min checks (behavioral with suicide precautions) for safety. The patient will participate in group, recreational, and milieu therapies and will be offered additional individual and family sessions as clinically appropriate. -risperidone 1 mg PO BID -lab including B12 and folate levels, ESR, RPR, HIV to investigate identifiable causes for recent-onset psychosis. Mental Health & Subst Abuse Tx Psychiatrist Name of Psychiatrist: Maribel Joaquin Psychiatrist's Date Of Appointment With Psychiatric Provider: 08/28/22 Time of Appointment with Psychiatrist: 10:00 AM - please bring insurance card Psychiatric Appointment Comment: [address] [facility], [facility] [address] Psychiatrist Release of Information: Obtained, Reviewed and Signed Therapist Name of Therapist: [facility] Therapist's Therapy Appointment Comment: [address], [facility] [address], [facility] [address] Therapist Release of Information: Obtained, Reviewed and Signed Top Coater Name of Top Coater: Denies Post Discharge Appointments Primary Care Physician Name Of Family Doctor/PCP: Dr. Bonilla Primary Care Provider Appointment Comment: Please follow up with PCP as needed. Primary Care Release of Information: Obtained, Reviewed and Signed Specialist Name of Specialist: Endocrinology - Dr. Palacios Phone Number for Specialist: [phone] Date of Appointment with Specialist: 08/31/22 Time of Appointment with Specialist: 1:30 PM Specialty Appointment Comment: [address], [facility] [address] Specialist Release of Information: Obtained, Reviewed and Signed Smoking Cessation Counseling Tobacco Cessation Medication Prescribed at Discharge: Offered & Pt Refused Contact Information Discharge Discharge Address: [address] [place] [id number] Discharge Plan Discharge Items Patient Disposition: Home - Self-Care Reason For Visit: PSYCHOTIC EPISODE Discharge Diagnosis: Bipolar Affective Disorder, episode of charisse Activity: Resume your previous activity Non-emergency contact: Primary Care Provider, Psychiatrist and Therapist Call non-emergency contact if: you have any medication questions and your symptoms worsen Follow-up/Referrals: Irving Bonilla M.D. [Primary Care Provider] - Diet: Regular Addtl Attending Provider Instructions: SPECIAL CARE INSTRUCTIONS: 1. Follow through with your scheduled aftercare appointments. If unable to keep an appointment, please call to reschedule. 2. Take your medication only as prescribed. Medication should not be changed or stopped without the approval of your doctor. In the event of worsening symptoms or concerns about side effects, contact your doctor immediately. 3. Utilize new healthy coping skills, anger management skills, and stress management skills learned during your hospitalization. Journal feelings and process them with a support person. Identify stressors or situations that may result in relapse, deterioration or inappropriate behaviors and develop a plan to deal with those issues. 4. If your coping skills are ineffective and you are in crisis, contact your outpatient providers for direction. If unable to reach your providers, please call the [facility] CRISIS LINE AT , go to the [facility] walk-in center at [address] [place] [address] A, [place], or go to the closest Emergency Room. 5. Avoid alcohol and un-prescribed drugs. 6. You have been provided with the Mental Health Advance Directives Pamphlet for your review. 7. Your condition is stable for discharge to outpatient level of care, but recovery is an ongoing process. Ifthoughts to harm yourself or others return, follow the safety plan developed during your stay. Planning for a safe return home includes securing weapons. Our treatment team recommends weaponsbe removed from the home until your outpatient provider reassesses your progress. In rare cases where the items themselvescannot be removed, guns and ammunitionshould be secured separatelyand keys stored by a reliable personoutside of the home. If you were admitted on an involuntary commitment, the police or other legal authorities may be involved in this process. AFTERCARE APPOINTMENTS: * Please call your insurance company prior to your scheduled appointment to confirm your aftercare providers are covered. Take your insurance information to your appointments. WHO TO CALL AND WHEN: Medical Emergencies: For questions or emergencies related to your hospital stay, please contact the Inpatient Behavioral Health Unit at [phone]. A ichthyologist is on-call 31/08 for the Behavioral Health Unit for emergencies At any time you feel your situation is an emergency, you may also call 911 immediately. National Crisis Line 988. Pending Studies at Discharge: No Medications and DC Order Prescriptions: New olanzapine [Zyprexa] 20 mg Tablet 20 mg PO HS 30 Days Qty: 30 0RF Continued (DME) blood-glucose meter [True Metrix Glucose Meter] Misc See Rx Instructions .ROUTE .MEDSUPPLY Qty: 100 3RF Rx Instructions: use to test 1 time daily (DME) True Metrix Glucose Test Strip Strip See Rx Instructions .ROUTE .MEDSUPPLY Qty: 100 3RF Rx Instructions: test 1 time daily (DME) Dexcom G6 Transmitter Device See Rx Instructions .MEDSUPPLY Qty: 1 3RF Rx Instructions: Use as directed for continuous glucose monitoring - change every 90 days (DME) Dexcom G6 Breaker Engineer Misc See Rx Instructions .MEDSUPPLY Qty: 1 0RF Rx Instructions: Use as directed for continuous glucose monitoring (DME) Dexcom G6 Sensor Device See Rx Instructions .MEDSUPPLY Qty: 9 3RF Rx Instructions: Use as directed for continuous glucose monitoring - Change sensor every 10 days lisinopril 20 mg tablet 20 mg PO DAILY Qty: 90 1RF Rx Instructions: Take with 10 mg tab (DME) pen needle, diabetic [BD Ultra-Fine Julianna Pen Needle] 32 gauge x 5/32" needle See Rx Instructions [id number] .MEDSUPPLY Qty: 100 0RF Rx Instructions: use 1needle daily levothyroxine 100 mcg tablet 100 mcg PO DAILY 30 Days Qty: 30 3RF Ozempic 0.25 mg or 0.5 mg(2 mg/1.5 mL) pen injector 0.5 mg subcut .COMPLEX Qty: 4.5 0RF Rx Instructions: 0.5 mg subcut once a week; atorvastatin 20 mg tablet 20 mg PO QPM Qty: 90 0RF aspirin [Adult Aspirin Regimen] 81 mg tablet,delayed release (DR/EC) 81 mg PO DAILY zolpidem 12.5 mg tablet,ext release multiphase 12.5 mg PO HS insulin glargine [Lantus Solostar U-100 Insulin] 100 unit/mL (3 mL) Insulin Pen 20 unit SUBCUT DAILY Discontinued venlafaxine 150 mg capsule,extended release 24hr 150 mg PO DAILY Discharge Orders: Discharge Order (Routine); Ordered 08/18/22 Ordered By: Delma Ledesma Admission Data Admit Date/Time: 08/13/22 20:39 Attending Provider: Delma Ledesma Admit Provider: Matty Kim Primary Care Provider: Irving Bonilla Other Providers: Matty Kim Other Interventions: Discharge Summary Assessment (RN) Last Done: 08/18/22 08:55 PSY Interdisciplinary Discharge Planning Last Done: 08/18/22 09:40 Coding Level of Care Code 96610 D/C day mgmt > 30 min Diagnoses Charisse F30.9 Bipolar affective disorder, current episode manic F31.10 Time Spent (min) 45
[2022-08-19 12:13] LABS: Amphetamine Urine, Confirm 265 ng/mL (<250); Marijuana Quant, GCMS Urine 194 ng/mL (<5); Methamphetamine, Ur Confirm 723 ng/mL (<250)
== END 2022-08-18 10:01 | disposition home or self-care (01) | DRG 885 ==
LOC: ED 15:14 → 3S 20:39 → SUATTDRO 20:39 → 3S 20:55

== ENCOUNTER 2023-04-27 04:08 | Inpatient (IN) ==
--- NOTE | 2023-04-27 05:02 | Emergency Department Note ---
Impression & Plan Charisse ED Provider Note ED Provider Note NAME: MARY RAE AGE:57 SEX: Male : 1965 ARRIVES VIA: private vehicle INFORMANT: Patient ED PROVIDER(s): Suzanna Jefferson DO CHIEF COMPLAINT: mental radha evaluation HPI: This is a 57 yo male who was seen and evaluated in the ER this morning and discharged and within 15 minutes returned and signed back in stating he "needs to sleep". Patient seen in triage with director case. Patient denies SI or HI but states there is a listening device implanted in his person as well as in his home. He states he and his are being hacked. He admits to hallucinations. PAST MEDICAL HISTORY:See Below PAST SURGICAL HISTORY:See Below FAMILY HISTORY:See Below SOCIAL HISTORY:See Below HOME MEDICATIONS:See Below ALLERGIES:See Below VITALS:See Below PHYSICAL EXAMINATION: GENERAL: alert, well appearing, well nourished, no distress, non-toxic EYE EXAM: normal conjunctiva, PERRL and EOM's grossly intact OROPHARYNX: no exudate, no erythema, lips, buccal mucosa, and tongue normal and mucous membranes are moist NECK: supple, no nuchal rigidity, no adenopathy, non-tender LUNGS: Clear to auscultation. Normal chest wall mechanics, no w/r/r HEART: no murmurs, S1 normal and S2 normal ABDOMEN: abdomen soft, non-tender, normo-active bowel sounds, no masses, no rebound or guarding. BACK: Back is symmetrical on inspection and there is no deformity, no midline tenderness, no CVA tenderness. SKIN: no rashes, petechiae, orbruising UPPER EXTREMITIES: upper extremities are grossly normal. FROM, nml pulses b/l. LOWER EXTREMITIES: No pitting edema. FROM, nml pulses b/l. NEURO EXAM: Normal sensorium, cranial nerves II-XII grossly intact, normal speech, no facial droop,nogross weakness of arms, no gross weakness of legs. Gross sensation intact. No ataxia. Vital Signs: reviewed and remarkable Differential Diagnosis: mood disorder, suicidal ideation, anxiety, depression, substance abuse, to xidrome, infection, hypoglycemia, electrolyte abnormalities, ICH as well as others were considered. MEDICAL DECISION MAKING: This is a 57-year-old male presents emergency department for the second time this evening now with concern for charisse and abnormal behavior. Patient denies any recent substance abuse. He does have a history of bipolar disorder. Additional labs sent although labs for several hours ago were reassuring. Urine collected for UDS. Patient seen and evaluated by case management and referred for additional inpatient mental health treatment. Case signed out pending final disposition. Consultation(s): 0745: Patient seen evaluated by case management and referred for possible evaluation to 3 S. ER Treatment Provided: See below Diagnostics Interpreted By Me: -Laboratory studies: As stated above and show below. Triage Nursing Note Reviewed Prior/Outside Records Reviewed -prior mental health evaluation reviewed Past Med/Surg History Medical History Psychotic episode Homicidal ideations Paranoia (psychosis) Vitamin D deficiency Diabetes type 2, controlled Depression with anxiety Dyslipidemia Hypothyroidism Overweight Laceration of head Family History Mother Stroke Father Diabetes Other Hypertension Social History Smoking Status: Current every day smoker Tobacco Type: Cigarettes Do You Dip or Chew Tobacco: No; Hx Alcohol Use: Yes Alcohol type: beer Hx Substance Use: Yes Last Used Substance: Unknown Preferred Language: Belarusian Communication Ability: Effective Delivery Stock Clerk Required: No Beliefs That Will Affect Care: None marital status: Current Living Situation: Spouse current occupational status: employed Feels Safe at Home: Yes Gender Identity: Male Assistive Devices: Glasses Allergies Allergies Allergy/AdvReac Type Severity Reaction Status Date / Time cat dander Allergy Mild ITHCY/WATERY Verified 08/13/22 19:44 EYES house dust Allergy Mild itchy/watery Verified 08/24/22 05:37 eyes phenobarbital Allergy Mild BUMPS ON Verified 08/13/22 19:44 TONGUE Home Meds Home Medications Medication Instructions Recorded Confirmed aspirin 81 mg tablet,delayed 81 mg PO DAILY 12/12/18 04/27/23 release (Adult Aspirin Regimen) Previous Rx's Medication Instructions Recorded blood sugar diagnostic (True #100 ea 04/23/20 Metrix Glucose Test Strip) blood-glucose meter (True Metrix #100 ea 04/23/20 Glucose Meter) Dexcom G6 Transmitter #1 ea 01/30/22 (blood-glucose transmitter) Dexcom G6 Longwall Shearer Operator (blood-glucose #1 ea 01/31/22 meter,continuous) Dexcom G6 Sensor (blood-glucose #9 ea 01/31/22 sensor) zolpidem 5 mg tablet 10 mg (2 x 5 mg) PO HS #0 tabs 08/27/22 insulin aspart U-100 100 unit/mL 1 sliding scale dose subcut 08/28/22 (3 mL) subcutaneous pen USEASDIRECTD #15 mL insulin glargine 100 unit/mL (3 20 unit (0.2 mL) subcut DAILY #30 12/03/22 mL) subcutaneous pen (Lantus mL Solostar U-100 Insulin) lisinopril 20 mg tablet 20 mg PO DAILY #90 tabs 02/15/23 Results & Data (ED) Vital Signs Vital Signs - 24 hr 04/27/23 08:33 Temperature 36.8 C Temperature Source Oral Pulse Rate [Right Finger] 66 Pulse Rhythm [Right Finger] Regular Pulse Strength [Right Finger] Normal Respiratory Rate 18 Respiratory Effort / Characteristics Non-Labored Spontaneous Respiratory Depth Normal Respiratory Pattern Regular Blood Pressure [Left Arm] 149/90 H Blood Pressure Mean [Left Arm] 109 Blood Pressure Position [Left Arm] Semi-fowlers Pulse Oximetry 97 Oxygen Delivery Method Room Air Laboratory Data Lab Results 04/27/23 04/27/23 04/27/23 Range/Units 00:31 06:13 06:14 Salicylates (3.0-30) mg/dl Urine Opiates Screen Neg (Neg) Ur Methadone, Qual Neg (Neg) Acetaminophen (10-30) ug/ml Urine Barbiturates Neg (Neg) Ur Phencyclidine (PCP) Neg (Neg) U Amphetamin/Meth Scrn Neg (Neg) MDMA (Ecstasy) Screen Neg (Neg) U Benzodiazepines Scrn Neg (Neg) Ur Cocaine Metabolite Neg (Neg) U Marijuana (THC) Screen Neg (Neg) Ethyl Alcohol mg/dL < 10.0 (<10.0) mg/dl SARS-CoV-2, RNA, NAAT NEGATIVE (NEGATIVE) 04/27/23 Range/Units 07:33 Salicylates < 3.0 L (3.0-30) mg/dl Urine Opiates Screen (Neg) Ur Methadone, Qual (Neg) Acetaminophen < 3 L (10-30) ug/ml Urine Barbiturates (Neg) Ur Phencyclidine (PCP) (Neg) U Amphetamin/Meth Scrn (Neg) MDMA (Ecstasy) Screen (Neg) U Benzodiazepines Scrn (Neg) Ur Cocaine Metabolite (Neg) U Marijuana (THC) Screen (Neg) Ethyl Alcohol mg/dL (<10.0) mg/dl SARS-CoV-2, RNA, NAAT (NEGATIVE) Administered Medications Divalproex Sodium (Divalproex Extended Release 500 Mg Tab) 1,000 mg PO HS MARÍA ELENA Stop: 05/27/23 21:59 Last Admin: 04/27/23 21:55 Dose: 1,000 mg Documented By: HEMA Insulin Aspart (Insulin Aspart Per Unit Charge) 0 units SC ACHS MARÍA ELENA Stop: 05/27/23 17:14 Last Admin: 04/27/23 22:03 Dose: Not Given Documented By: HEMA Co-signed By: LINA Admin: 04/27/23 18:06 Dose: 8 units Documented By: LINA Co-signed By: HEMA Lisinopril (Lisinopril 20 Mg Tab) 20 mg PO DAILY MARÍA ELENA Stop: 05/27/23 15:29 Last Admin: 04/27/23 16:18 Dose: 20 mg Documented By: HEMA Lorazepam (Lorazepam 1 Mg Tab) 1 mg PO Q4 PRN PRN Reason: Anxiety/Agitation Stop: 05/27/23 15:36 Last Admin: 04/27/23 16:03 Dose: 1 mg Documented By: HEMA Olanzapine (Olanzapine 5 Mg Tablet) 5 mg PO Q4 PRN PRN Reason: Anxiety/Agitation Stop: 05/27/23 15:59 Last Admin: 04/27/23 18:14 Dose: 5 mg Documented By: Admin: 04/27/23 12:48 Dose: 5 mg Documented By: IVETTE Zolpidem Tartrate (Zolpidem Tartrate 5 Mg Tab) 10 mg PO HS MARÍA ELENA Stop: 05/27/23 21:59 Last Admin: 04/27/23 21:57 Dose: 10 mg Documented By: HEMA Discontinued Medications Insulin Glargine (Lantus Per Unit Charge) 20 units SC NOW STA Stop: 04/27/23 16:45 Last Admin: 04/27/23 16:51 Dose: 20 units Documented By: HEMA Co-signed By: LINA Discharge Plan Visit Data Chief Complaint: Mental Health Evaluation ED Provider: Matty Sanz Discharge Problem: Charisse Patient Disposition: Admitted As Inpatient Discharge Instructions Interventions: ED Discharge Assessment Last Done: 04/27/23 09:04
[2023-04-27 05:37] LABS: Amphetamines+Metham, Urine Neg (Neg); Barbiturates, Urine Neg (Neg); Benzodiazepine, Urine Neg (Neg); Cocaine, Urine Neg (Neg); MDMA (Ecstacy), Urine Neg (Neg); Marijuana, Urine Neg (Neg); Methadone, Urine Neg (Neg); Opiate, Urine Neg (Neg); Phencyclidine, Urine Neg (Neg)
[2023-04-27 08:10] LABS: Acetaminophen < 3 ug/ml (10-30); Salicylate < 3.0 mg/dl (3.0-30)
[2023-04-27] MEDS ORDERED: BISMUTH SUBSALICYLATE LIQD 236 ML PO PRN (08:13)
[2023-04-27] MEDS ORDERED: ACETAMINOPHEN 325 MG TAB PO PRN (08:13)
[2023-04-27] MEDS ORDERED: MAGNESIUM HYDROXIDE SUSP 30 ML UDC PO PRN (08:13)
[2023-04-27] MEDS ORDERED: hydrOXYzine HCl 25 MG TAB PO PRN ×2 (08:13)
[2023-04-27] MEDS ORDERED: SODIUM CHLORIDE 0.65% NA SOLN 45 ML (OCEAN) PRN (08:13)
[2023-04-27] MEDS ORDERED: ALUMINUM/MAGNESIUM SUSP 30 ML UDC PO PRN (08:13)
--- NOTE | 2023-04-27 08:55 | Emergency Department Note ---
ED Visit Note Patient was signed out to me at change of shift by Dr. Jefferson, pending evaluation for inpatient psychiatric care for charisse with elements of paranoia and psychosis. Patient was assessed by the behavioral health unit here at [facility] and was accepted for inpatient care. Patient is currently voluntary. Patient was transferred to the behavioral health unit in stable condition for further management. .
[2023-04-27] MEDS: OLANZapine 5 MG TABLET PO PRN (12:48)
[2023-04-27] MEDS ORDERED: PHARMACY GLYCEMIC MGMT CONSULT PRN (16:00)
[2023-04-27] MEDS: LORazepam 1 MG TAB PO PRN (16:03)
[2023-04-27] MEDS: lisinopril 20 MG TAB PO SCH (16:18)
[2023-04-27] MEDS: LANTUS PER UNIT CHARGE SC STA (16:51)
--- NOTE | 2023-04-27 17:45 | History & Physical ---
Date of Service April 27, 2023 Impression / Recommendations Impression 57 yo male with hx of agitated charisse and polysubstance abuse presents with manic episode with paranoid and somatic delusions and significant psychomotor restlessness, he did not follow up with treatment or medications after 08/2022 stay. MNPR due to poor boundaries, hx of threatening behavior Overall, I spent a total of 65 minutes with this case, including review of chart, review of records, direct evaluation of the patient, counseling the patient, ordering medication, and documentation. (1) Bipolar affective disorder, current episode manic: Plan The patient was admitted to the [facility] ([facility] mental health unit) on q15 min checks (behavioral with suicide precautions) for safety. The patient will participate in group, recreational, and milieu therapies and will be offered additional individual and family sessions as clinically appropriate. The patient signed a 72 hour notice upon arrival to the unit. He is willing to stay for additional treatment and monitoring just likes to know the "clock is ticking." repeat CBC, Na, LFTs in am with fasting lipids and HqbA1C. Zyprexa 5 mg prn, cannot advise for regular use despite the fact 20 mg was helpful for charisse as hx of hyperglycemia. glycemic management by pharmacy. he was agreeable to resume Depakote as previously effective, will need to monitor trends in LFTs but less likely to impact sugars or renal function than other options. Ativan 1 mg prn acute charisse as well. Inventory Assets Strengths: help seeking, voluntary this stay Needs: improve insight and medication compliance. Suicide Risk Level Suicide Risk Level: Low (q15 min observation checks) Risk Factors Assessment Male: Yes : Yes Do You Have Access To A Gun?: No Mental Health Diagnoses: Yes Substance Use Disorders: Yes (hx, suspect) Previous Attempt: No Previous Psychiatric Hospitalization: Yes Protective Factors Assessment : Yes Employed: No Psychiatric History Identifying Data RAMAN RAE is a 57-year-old M who currently lives in [place], has a history of 302 commitment to August 2022, and was admitted on 04/27/23 09:00 on a 201 voluntary commitment for paranoia. Chief Complaint "I'm pretty sure the wiring is still all messed up in my attic and they are trying to kill me." History of Present Illness History reviewed and confirmed as documented by ED CM: Raman was seen in the ED for c/o medical concerns. He was cleared and discharged. Raman walked to his vehicle after discharge and [facility] to be seen [facility]. Raman asked for "a new account number." He the requested to have another medical work up. Raman asked if he can 'just lay down and sleep." Raman then requested to be seen for mental health. He stated he had been 302'd before. He stated he and his had been talking and thought it would be a good idea for him to seek inpatient mental health treatment. Met with Raman to complete mental health evaluation. Raman stated the reason he is asking for a new account number is "because people are torturing my and I. 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 They changed capital gains and div idends to steal money." Raman stated "someone then broke into my house and put virus's on my computers." Raman stated he has gone through 19 computers this past year. He stated "there people moved into the house above me. He works for [employer] with is a [employer] company. He is an [employer] grad." Raman stated he has thoughts to hurt them. He stated "they told me they were going to kill me this week. They keep telling me I'm fucking ." Raman observed putting his finger up to his ear and then stating "thanks brother." Raman stated there is "an active listening device" planted in his ear "that can hear everything you say." Raman stated he can hear people through the "device" as well. He stated "they tell me they are going to kill me and sometimes they say I'm brilliant." Raman was asked about visual hallucinations and he responding "I'm more acutely aware than most." Raman stated there are computer chips planted in the moreno. He stated they operate on RF and directional radar. He stated "they beam down frequencies." Raman circled back around to requesting his medical workup be redone and compared to his last visit. He stated "they got in and changed my lab values. I know how sick I am." Raman stated he believes he has approx. 1 week to live. He stated she is going to of a heart attack or cancer. He stated "this morning the top of my liver was 25% larger than it is right now. When asked about suicidal thoughts, Raman replied "maybe, there is a potential they snuck in my house and made me sick." Raman denies any legal issues. He denies trauma/abuse history. He stated he was diagnosed with "acute manic episode" in the past. He does not take any psychiatric medication. He stated he is diabetic and does the his prescribed diabetes medication. He denies drug or alcohol use but then stated he took a Percocet at 1000. Raman stated "I don't want my to be exposed to the danger." Raman observed pacing the room and talking to self. Raman is agreeable with recommendation for inpatient mental health treatment. He is less focussed on his neighbors this stay stating "we worked it all out." In the past he has made threats toward them due to his paranoia, evening carrying metal pipes/clubs in his car or patroling his property with a loaded gun (police confirmed guns confiscated previous stay which included multiple duties to warn). During his 2022 stay there was concern for recent use of Adderall if not meth amphetamine but currently denies an tox is negative. The patient is restless on the unit, gesturing in the air, talking loudly to himself then poor impulse control with touching doctor/peers and running in the hallway. He was convince there is a "buzzing object like a chip" in his ear. His tympanic membranes were visualized with with an otoscope and canals are clean and no fluid behind drum or exudate. He was reassured and then focussed on his Lantus which he demanded be given this pm and then every am. His attention span is so short there are significant concerns about his ability to manage insulin. He states that he stopped medication within the first month of discharge as "felt alright." Past Psychiatric History Current Psychiatric Diagnosis: Bipolar Disorder Outpatient Services: noncompliant with [facility] Previous Psych Admissions: August [address] Do You Have Access To A Gun?: No History of Previous Suicide Attempt: No Past Medication Trials: Zyprexa, venlafaxine, zolpidem, Depakote Allergies Allergy/AdvReac Type Severity Reaction Status Date / Time cat dander Allergy Mild ITHCY/WATERY Verified 08/13/22 19:44 EYES house dust Allergy Mild itchy/watery Verified 08/24/22 05:37 eyes phenobarbital Allergy Mild BUMPS ON Verified 08/13/22 19:44 TONGUE Home Medications Medication Instructions Recorded Confirmed Type aspirin 81 mg tablet,delayed 81 mg PO DAILY 12/12/18 04/27/23 History release (Adult Aspirin Regimen) blood sugar diagnostic (True #100 ea 04/23/20 08/24/22 Rx Metrix Glucose Test Strip) blood-glucose meter (True Metrix #100 ea 04/23/20 08/24/22 Rx Glucose Meter) Dexcom G6 Transmitter #1 ea 01/30/22 08/24/22 Rx (blood-glucose transmitter) Dexcom G6 Broadband Engineer (blood-glucose #1 ea 01/31/22 08/24/22 Rx meter,continuous) Dexcom G6 Sensor (blood-glucose #9 ea 01/31/22 08/24/22 Rx sensor) zolpidem 5 mg tablet 10 mg (2 x 5 mg) PO HS #0 tabs 08/27/22 04/27/23 Rx insulin aspart U-100 100 unit/mL 1 sliding scale dose subcut 08/28/22 04/27/23 Rx (3 mL) subcutaneous pen USEASDIRECTD #15 mL insulin glargine 100 unit/mL (3 20 unit (0.2 mL) subcut DAILY #30 12/03/22 04/27/23 Rx mL) subcutaneous pen (Lantus mL Solostar U-100 Insulin) lisinopril 20 mg tablet 20 mg PO DAILY #90 tabs 02/15/23 04/27/23 Rx Family History Family History of: Doesn't Know Alcohol History Hx of Alcohol Use Over the Past 12 Months: No AUDIT Total Score: 0 Smoking Use Have You Smoked or Used Tobacco Products in the Last 30 Days: No tobacco type: e-cigarettes Smoking Status: Current every day smoker Substance History Hx of Prescription Med Misuse Over the Past 12 Months: No Hx of Over the Counter Med Misuse Over the Past 12 Months: No Hx of Inhalent Misuse Over the Past 12 Months: No Hx of Organic Substance Use Over the Past 12 Months: No Hx of Illegal Substances/Street Drug Use Over Past 12 Months: No Problems as a Result of Past Substance Use: None Identified Personal History Living Arrangements: Home Highest Grade Completed: College Marital Status: Number Of Children: 0 Beliefs That Will Affect Care: None Legal Problems Comment: hx of harassment Patient History Medical History Psychotic episode Homicidal ideations Paranoia (psychosis) Vitamin D deficiency Diabetes type 2, controlled Depression with anxiety Dyslipidemia Hypothyroidism Overweight Laceration of head Family History Mother Stroke Father Diabetes Other Hypertension Social History Smoking Status: Current every day smoker Tobacco Type: Cigarettes Do You Dip or Chew Tobacco: No; Hx Alcohol Use: Yes Alcohol type: beer Hx Substance Use: Yes Last Used Substance: Unknown Preferred Language: Vietnamese Communication Ability: Effective Zoo Keeper Required: No Beliefs That Will Affect Care: None marital status: Current Living Situation: Spouse current occupational status: employed Feels Safe at Home: Yes Gender Identity: Male Assistive Devices: Glasses Review of Systems Review of Systems: All systems reviewed & are unremarkable except as noted in HPI & below Physical Exam Psychiatric: Orientation: alert and oriented x 3 Apperance: appropriately dressed and appropriately groomed Eye Contact: + fair eye contact Motor Behavior: + psychomotor agitation Speech: + pressured speech Affect: + elated affect Mood: + anxious mood Thought Process: + tangential thought process Thought Content: + paranoid and + delusions Suicidal Thoughts: denies suicidal thoughts Homicidal Thoughts: denies homicidal thoughts Hallucinations: no auditory hallucinations and no visual hallucinations Co gnition: language grossly intact; + attention not intact Estimated Intelligence: consistent with education level Insight: + limited insight Judgment: + limited judgement Vital Signs (Past 24 Hours): Last Vital Signs Temp 36.8 C 04/27/23 09:34 Pulse 66 04/27/23 09:34 Resp 18 04/27/23 09:34 BP 149/90 H 04/27/23 09:34 Pulse Ox 97 04/27/23 09:34 O2 Del Method Room Air 04/27/23 09:34 Exam Statement: A physical exam was performed in the ED by Dr. Jefferson for the purposes of medical clearance. I accept that physical as correct and adequate for the purposes of the inpatient physical exam. Results & Data ([facility]) Laboratory Results Laboratory Results - last 24 hr note was seen in ED for a separate course of care where routine labs remarkable for AST 72 and Na 131. 04/27/23 04/27/23 04/27/23 00:31 06:13 06:14 POC Glucose Salicylates Urine Opiates Screen Neg Ur Methadone, Qual Neg Acetaminophen Urine Barbiturates Neg Ur Phencyclidine (PCP) Neg U Amphetamin/Meth Scrn Neg MDMA (Ecstasy) Screen Neg U Benzodiazepines Scrn Neg Ur Cocaine Metabolite Neg U Marijuana (THC) Screen Neg Ethyl Alcohol mg/dL < 10.0 SARS-CoV-2, RNA, NAAT NEGATIVE 04/27/23 04/27/23 07:33 16:24 POC Glucose 248 H Salicylates < 3.0 L Urine Opiates Screen Ur Methadone, Qual Acetaminophen < 3 L Urine Barbiturates Ur Phencyclidine (PCP) U Amphetamin/Meth Scrn MDMA (Ecstasy) Screen U Benzodiazepines Scrn Ur Cocaine Metabolite U Marijuana (THC) Screen Ethyl Alcohol mg/dL SARS-CoV-2, RNA, NAAT Current Inpatient Medications Current Inpatient Medications: Current Inpatient Medications Acetaminophen (Acetaminophen 325 Mg Tab) 650 mg PO Q4H PRN PRN Reason: Headache or Minor Fever Stop: 05/27/23 08:12 Al Hydrox/Mg Hydrox/Simethicone (Aluminum/Magnesium Susp 30 Ml Udc) 30 ml PO Q4H PRN PRN Reason: GI Upset Stop: 05/27/23 08:12 Aspirin (Aspirin 81 Mg Ectab) 81 mg PO DAILY MARÍA ELENA Stop: 05/28/23 08:59 Bismuth Subsalicylate (Bismuth Subsalicylate Liqd 236 Ml) 15 ml PO PRN PRN PRN Reason: Loose Stool Stop: 05/27/23 08:12 Divalproex Sodium (Divalproex Extended Release 500 Mg Tab) 1,000 mg PO HS MARÍA ELENA Stop: 05/27/23 21:59 Hydroxyzine HCl (Hydroxyzine Hcl 25 Mg Tab) 50 mg PO HSZ PRN PRN Reason: Insomnia Stop: 05/27/23 08:12 Hydroxyzine HCl (Hydroxyzine Hcl 25 Mg Tab) 25 mg PO Q4H PRN PRN Reason: Anxiety Stop: 05/27/23 08:12 Insulin Aspart (Insulin Aspart Per Unit Charge) 0 units SC ACHS MARÍA ELENA Stop: 05/27/23 17:14 Lisinopril (Lisinopril 20 Mg Tab) 20 mg PO DAILY MARÍA ELENA Stop: 05/27/23 15:29 Last Admin: 04/27/23 16:18 Dose: 20 mg Lorazepam (Lorazepam 1 Mg Tab) 1 mg PO Q4 PRN PRN Reason: Anxiety/Agitation Stop: 05/27/23 15:36 Last Admin: 04/27/23 16:03 Dose: 1 mg Magnesium Hydroxide (Magnesium Hydroxide Susp 30 Ml Udc) 30 ml PO DAILY PRN PRN Reason: Constipation Stop: 05/27/23 08:12 Miscellaneous Information (Pharmacy Glycemic Mgmt Consult) 1 each N/A UD PRN; Protocol PRN Reason: Consult Stop: 05/27/23 15:59 Olanzapine (Olanzapine 5 Mg Tablet) 5 mg PO Q4 PRN PRN Reason: Anxiety/Agitation Stop: 05/27/23 15:59 Last Admin: 04/27/23 12:48 Dose: 5 mg Sodium Chloride (Sodium Chloride 0.65% Na Soln 45 Ml ([place])) 1 - 2 sprays NA PRN PRN PRN Reason: Nasal Dryness/Congestion Stop: 05/27/23 08:12 Zolpidem Tartrate (Zolpidem Tartrate 5 Mg Tab) 10 mg PO HS MARÍA EELNA Stop: 05/27/23 21:59
[2023-04-27] MEDS ORDERED: DEXTROSE 50% 50 ML SYRINGE IV PRN (18:00)
[2023-04-27] MEDS ORDERED: GLUCOSE 40% GEL 15 GM TUBE PO PRN (18:00)
[2023-04-27] MEDS ORDERED: GLUCAGON FOR INJ 1 MG VIAL IM PRN (18:00)
[2023-04-27] MEDS ORDERED: GLUCOSE 10 TAB/TUBE PO PRN (18:00)
[2023-04-27] MEDS ORDERED: CARBOHYDRATES FOR HYPOGLYCEMIA PO PRN (18:00)
[2023-04-27] MEDS: INSULIN ASPART PER UNIT CHARGE SC SCH (18:06)
[2023-04-27] MEDS: DIVALPROEX EXTENDED RELEASE 500 MG TAB PO SCH (21:55)
[2023-04-27] MEDS: ZOLPIDEM TARTRATE 5 MG TAB PO SCH (21:57)
[2023-04-27] MEDS ORDERED: ZOLPIDEM TARTRATE 10 MG TAB PO SCH (22:00)
[2023-04-28 08:02] LABS: Basophils # (auto) 0.03 K/uL (0.00-0.20); Basophils % (auto) 0.4 %; Eosinophils # (auto) 0.17 K/uL (0.00-0.50); Eosinophils % (auto) 2.4 %; Hematocrit (blood only) 34.1 % (42.0-52.0); Hemoglobin 11.7 g/dl (14.0-18.0); Immature Granulocytes # (auto) 0.03 K/uL (0.01-0.20); Immature Granulocytes % (auto) 0.4 %; Lymphocytes # (auto) 1.69 K/uL (1.20-3.40); Lymphocytes % (auto) 23.8 %; Mean Corpuscular Hemoglobin 31.6 pg (25.0-34.0); Mean Corpuscular Hgb Conc 34.3 g/dL (32.0-36.0); Mean Corpuscular Volume 92.2 fL (80.0-100.0); Mean Platelet Volume 10.7 fL (9.4-12.4); Monocytes # (auto) 0.76 K/uL (0.11-0.59); Monocytes % (auto) 10.7 %; Neutrophils # (auto) 4.41 K/uL (1.40-6.50); Neutrophils % (auto) 62.3 %; Platelet Count 238 K/uL (130-400); RDW Coefficient of Variation 14.5 % (11.5-14.5); RDW Standard Deviation 48.5 fL (36.4-46.3); White Blood Count 7.09 K/ul (4.8-10.8)
[2023-04-28] MEDS: ASPIRIN 81 MG ECTAB PO SCH (08:04)
[2023-04-28 09:08] LABS: Albumin Level 4.1 gm/dl (3.4-5.0); Bilirubin Direct 0.1 mg/dl (0-0.2); Bilirubin,Total 0.5 mg/dl (0.2-1.0); Potassium 4.1 mmol/L (3.5-5.1); Total Protein 6.7 gm/dl (6.0-8.3)
[2023-04-28] MEDS: LANTUS PER UNIT CHARGE SC SCH (09:25)
[2023-04-28 09:33] LABS: Estimated Average Glucose 171 mg/dl; Hemoglobin A1C 7.6 % (4.5-5.6)
--- NOTE | 2023-04-28 13:05 | Pharmacy Report ---
Pharmacy Glycemic Short Note 2 - Date of Service April 28, 2023 - Glycemic Short BSG Results (Last 24 hours): 04/27/23 04/27/23 04/28/23 16:24 22:00 08:29 POC Glucose 248 H 97 164 H 04/28/23 12:31 POC Glucose 109 H OUTPATIENT ANTIDIABETIC REGIMEN: * Lantus 20 units SC daily * Novolog SSI SC AC * HbA1c: 7.6% (04/28/23) ASSESSMENT: * 57 yo M admitted on 04/27/23 secondary to mental health evaluation. Pharmacy has been consulted to assist with inpatient glycemic management. Patient is a Type 2 diabetic as an outpatient. Please refer to outpatient regimen and most recent HbA1c above. * BSG was 248 mg/dL last evening. Patient received correctional/carb coverage and dropped to 97 mg/dL. * AM fasting is 164 mg/dL today. Gave a reduced basal dose. Lunchtime BSG again dropped to below goal at 109 mg/dL. * Loosened carb ratio even at both breakfast and lunch. Continue to monitor. PLAN FOR INPATIENT GLYCEMIC CONTROL: * Basal insulin * Lantus 15 units SC AM * Bolus insulin * NovoLog per scale ACHS or Q6hrs while NPO * Goal Range: Low 110 mg/dL - High 140 mg/dL * Correction Factor: 35 mg/dL/unit * Nutritional / Prandial insulin per carb ratio of 1 unit per 15 grams CHO consumed
--- NOTE | 2023-04-28 17:28 | Psychiatric Progress Note ---
Date of Service April 28, 2023 Impression / Recommendations Impression 57 yo male with hx of agitated charisse and polysubstance abuse presents with manic episode with paranoid and somatic delusions and significant psychomotor restlessness, he did not follow up with treatment or medications after 08/2022 stay. MNPR due to poor boundaries, hx of threatening behavior Overall, I spent a total of 37 minutes with this case, including review of chart, review of records, direct evaluation of the patient, counseling the patient, treatment team, and documentation. (1) Bipolar affective disorder, current episode manic: Plan 04/28/2023: continue current medications and treatment plan--patient agreeable to remain hospitalized pending family meeting for support and discharge planning. 04/27/2023: The patient was admitted to the [facility] ([facility]) on q15 min checks (behavioral with suicide precautions) for safety. The patient will participate in group, recreational, and milieu therapies and will be offered additional individual and family sessions as clinically appropriate. The patient signed a 72 hour notice upon arrival to the unit. He is willing to stay for additional treatment and monitoring just likes to know the "clock is ticking." repeat CBC, Na, LFTs in am with fasting lipids and HqbA1C. Zyprexa 5 mg prn, cannot advise for regular use despite the fact 20 mg was helpful for charisse as hx of hyperglycemia. glycemic management by pharmacy. he was agreeable to resume Depakote as previously effective, will need to monitor trends in LFTs but less likely to impact sugars or renal function than other options. Ativan 1 mg prn acute charisse as well. Inventory Assets Strengths: help seeking, voluntary this stay Needs: improve insight and medication compliance. Suicide Risk Level Suicide Risk Level: Low (q15 min observation checks) Risk Factors Assessment Male: Yes : Yes Do You Have Access To A Gun?: No Mental Health Diagnoses: Yes Substance Use Disorders: Yes (hx, suspect) Previous Attempt: No Previous Psychiatric Hospitalization: Yes Protective Factors Assessment : Yes Employed: No Interval History Identifying Information MARY GARCIAATO, prefers "FERNANDO" is a 57-year-old M who currently lives in [place], has a history of 302 commitment to August 2022, and was admitted on 04/27/23 09:00 on a 201 voluntary commitment for paranoia. Chief Complaint "I'm ready to go, if someone is going to mess with me they are going to do it right?" Review of Systems Sleep Information Total Hours of Sleep: 7.75 Meal Information Percent Meal Consumed - Breakfast: 50 Percent Meal Consumed - Lunch: 75 Percent Meal Consumed - Dinner: 100 Subjective Subjective Patient was seen & assessed and interval progress reviewed with treatment team. Received doses of prn Billy and Zyprexa yesterday with benefit. cooperative with Depakote retrial and diabetes management. He is less pressured and less restless than yesterday but quick to escalate when discussing discharge or can't reach his . He continues to believe he is being harrassed by unknown forces outside of the hospital but not as afraid for his safety or the safety of his . Physical Exam Psychiatric Orientation: alert and oriented x 3 Apperance: appropriately dressed and appropriately groomed Eye Contact: + fair eye contact Motor Behavior: no psychomotor agitation (but restless) Speech: + abnormal rate/rhythm/volume of speech (fast) Affect: + constricted affect Mood: + anxious mood Thought Process: + tangential thought process Thought Content: + paranoid Suicidal Thoughts: denies suicidal thoughts Homicidal Thoughts: denies homicidal thoughts Hallucinations: no auditory hallucinations and no visual hallucinations Cognition: language grossly intact; + attention not intact Estimated Intelligence: consistent with education level Insight: + limited insight Judgment: + limited judgement Vital Signs (Past 24 Hours) Last Vital Signs Temp 36.2 C L 04/28/23 06:00 Pulse 65 04/28/23 06:49 Resp 16 04/28/23 06:00 BP 116/76 04/28/23 06:49 Pulse Ox 97 04/27/23 09:34 O2 Del Method Room Air 04/27/23 09:34 Results & Data ([facility]) Laboratory Results Laboratory Results - last 24 hr 04/27/23 04/28/23 04/28/23 22:00 07:37 08:29 WBC 7.09 RBC 3.70 L Hgb 11.7 L Hct 34.1 L MCV 92.2 MCH 31.6 MCHC 34.3 RDW Std Deviation 48.5 H RDW Coeff of Denisse 14.5 Plt Count 238 MPV 10.7 Immature Gran % (Auto) 0.4 Neut % (Auto) 62.3 Lymph % (Auto) 23.8 Yell % (Auto) 10.7 Eos % (Auto) 2.4 Baso % (Auto) 0.4 Neut # (Auto) 4.41 Lymph # (Auto) 1.69 Yell # (Auto) 0.76 H Eos # (Auto) 0.17 Baso # (Auto) 0.03 Immature Gran # (Auto) 0.03 Sodium 142 D Potassium 4.1 Chloride 111 H Carbon Dioxide 22 Anion Gap 9 POC Glucose 97 164 H Estimat Average Glucose 171 Hemoglobin A1c 7.6 H Total Bilirubin 0.5 D Direct Bilirubin 0.1 AST 45 H ALT 33 Alkaline Phosphatase 68 Total Protein 6.7 Albumin 4.1 Triglycerides 77 Cholesterol 188 LDL Cholesterol, Calc 78 VLDL Cholesterol, Calc 15 HDL Cholesterol 95 Cholesterol/HDL Ratio 2.0 04/28/23 04/28/23 12:31 16:35 WBC RBC Hgb Hct MCV MCH MCHC RDW Std Deviation RDW Coeff of Denisse Plt Count MPV Immature Gran % (Auto) Neut % (Auto) Lymph % (Auto) Yell % (Auto) Eos % (Auto) Baso % (Auto) Neut # (Auto) Lymph # (Auto) Yell # (Auto) Eos # (Auto) Baso # (Auto) Immature Gran # (Auto) Sodium Potassium Chloride Carbon Dioxide Anion Gap POC Glucose 109 H 118 H Estimat Average Glucose Hemoglobin A1c Total Bilirubin Direct Bilirubin AST ALT Alkaline Phosphatase Total Protein Albumin Triglycerides Cholesterol LDL Cholesterol, Calc VLDL Cholesterol, Calc HDL Cholesterol Cholesterol/HDL Ratio Current Inpatient Medications Current Inpatient Medications: Current Inpatient Medications Acetaminophen (Acetaminophen 325 Mg Tab) 650 mg PO Q4H PRN PRN Reason: Headache or Minor Fever Stop: 05/27/23 08:12 Al Hydrox/Mg Hydrox/Simethicone (Aluminum/Magnesium Susp 30 Ml Udc) 30 ml PO Q4H PRN PRN Reason: GI Upset Stop: 05/27/23 08:12 Aspirin (Aspirin 81 Mg Ectab) 81 mg PO DAILY MARÍA ELENA Stop: 05/28/23 08:59 Last Admin: 04/28/23 08:04 Dose: 81 mg Bismuth Subsalicylate (Bismuth Subsalicylate Liqd 236 Ml) 15 ml PO PRN PRN PRN Reason: Loose Stool Stop: 05/27/23 08:12 Dextrose (Dextrose 50% 50 Ml Syringe) 25 - 50 ml IV UD PRN; Protocol PRN Reason: Hypoglycemia Protocol Stop: 05/27/23 17:59 Divalproex Sodium (Divalproex Extended Release 500 Mg Tab) 1,000 mg PO HS MARÍA ELENA Stop: 05/27/23 21:59 Last Admin: 04/27/23 21:55 Dose: 1,000 mg Glucagon (Glucagon For Inj 1 Mg Vial) 1 mg IM UD PRN; Protocol PRN Reason: Hypoglycemia Protocol Stop: 05/27/23 17:59 Glucose (Glucose 40% Gel 15 Gm Tube) 15 - 30 gm PO UD PRN; Protocol PRN Reason: Hypoglycemia Protocol Stop: 05/27/23 17:59 Glucose (Glucose 10 Tab/Tube) 4 - 8 tab PO UD PRN; Protocol PRN Reason: Hypoglycemia Protocol Stop: 05/27/23 17:59 Hydroxyzine HCl (Hydroxyzine Hcl 25 Mg Tab) 50 mg PO HSZ PRN PRN Reason: Insomnia Stop: 05/27/23 08:12 Hydroxyzine HCl (Hydroxyzine Hcl 25 Mg Tab) 25 mg PO Q4H PRN PRN Reason: Anxiety Stop: 05/27/23 08:12 Insulin Aspart (Insulin Aspart Per Unit Charge) 0 units SC [facility]; Protocol Stop: 05/27/23 17:14 Last Admin: 04/28/23 13:01 Dose: Not Given Insulin Glargine (Lantus Per Unit Charge) 15 units SC DAILY [facility]; Protocol Stop: 05/28/23 08:59 Last Admin: 04/28/23 09:25 Dose: 15 units Lisinopril (Lisinopril 20 Mg Tab) 20 mg PO DAILY MARÍA ELENA Stop: 05/27/23 15:29 Last Admin: 04/28/23 08:04 Dose: 20 mg Lorazepam (Lorazepam 1 Mg Tab) 1 mg PO Q4 PRN PRN Reason: Anxiety/Agitation Stop: 05/27/23 15:36 Last Admin: 04/28/23 16:22 Dose: 1 mg Magnesium Hydroxide (Magnesium Hydroxide Susp 30 Ml Udc) 30 ml PO DAILY PRN PRN Reason: Constipation Stop: 05/27/23 08:12 Miscellaneous (Carbohydrates For Hypoglycemia ) 15 - 30 gm PO UD PRN PRN Reason: Hypoglycemia Treatment Stop: 05/27/23 17:59 Miscellaneous Information (Pharmacy Glycemic Mgmt Consult) 1 each N/A UD PRN; Protocol PRN Reason: Consult Stop: 05/27/23 15:59 Olanzapine (Olanzapine 5 Mg Tablet) 5 mg PO Q4 PRN PRN Reason: Anxiety/Agitation Stop: 05/27/23 15:59 Last Admin: 04/28/23 16:22 Dose: 5 mg Sodium Chloride (Sodium Chloride 0.65% Na Soln 45 Ml ([place])) 1 - 2 sprays NA PRN PRN PRN Reason: Nasal Dryness/Congestion Stop: 05/27/23 08:12 Zolpidem Tartrate (Zolpidem Tartrate 5 Mg Tab) 10 mg PO HS MARÍA ELENA Stop: 05/27/23 21:59 Last Admin: 04/27/23 21:57 Dose: 10 mg Mental Health & Subst Abuse Tx Psychiatrist Name of Psychiatrist: Maribel Joaquin PA-C Psychiatrist's Therapist Name of Therapist: [facility] Therapist's Outpatient Program Coordinator Name of Outpatient Program Coordinator: None Post Discharge Appointments Primary Care Physician Name Of Family Doctor/PCP: Dr. Irving Bonilla Primary [facility] Contact Information Discharge Discharge Address: [address] [place], [place] [address] [id number]
--- NOTE | 2023-04-29 16:38 | Discharge Summary ---
Date of Service April 29, 2023 History of Present Illness History reviewed and confirmed as documented by ED CM: Raman was seen in the ED for c/o medical concerns. He was cleared and discharged. Raman walked to his vehicle after discharge and returned to [facility] requesting to be seen again. Raman asked for "a new account number." He the requested to have another medical work up. Raman asked if he can 'just lay down and sleep." Raman then requested to be seen for mental health. He stated he had been 302'd before. He stated he and his had been talking and thought it would be a good idea for him to seek inpatient mental health treatment. Met with Raman to complete mental health evaluation. Raman stated the reason he is asking for a new account number is "because people are torturing my and I. 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 They changed capital gains and dividends to steal money." Raman stated "someone then broke into my house and put virus's on my computers." Raman stated he has gone through 19 computers this past year. He stated "there people moved into the house above me. He works for [employer] with is a [employer] company. He is an [employer] grad." Raman stated he has thoughts to hurt them. He stated "they told me they were going to kill me this week. They keep telling me I'm fucking ." Raman observed putting his finger up to his ear and then stating "thanks brother." Raman stated there is "an active listening device" planted in his ear "that can hear everything you say." Raman stated he can hear people through the "device" as well. He stated "they tell me they are going to kill me and sometimes they say I'm brilliant." Raman was asked about visual hallucinations and he responding "I'm more acutely aware than most." Raman stated there are computer chips planted in the moreno. He stated they operate on RF and directional radar. He stated "they beam down frequencies." Raman circled back around to requesting his medical workup be redone and compared to his last visit. He stated "they got in and changed my lab values. I know how sick I am." Raman stated he believes he has approx. 1 week to live. He stated she is going to of a heart attack or cancer. He stated "this morning the top of my liver was 25% larger than it is right now. When asked about suicidal thoughts, Raman replied "maybe, there is a potential they snuck in my house and made me sick." Raman denies any legal issues. He denies trauma/abuse history. He stated he was diagnosed with "acute manic episode" in the past. He does not take any psychiatric medication. He stated he is diabetic and does the his prescribed diabetes medication. He denies drug or alcohol use but then stated he took a Percocet at 1000. Raman stated "I don't want my to be exposed to the danger." Raman observed pacing the room and talking to self. Raman is agreeable with recommendation for inpatient mental health treatment. He is less focussed on his neighbors this stay stating "we worked it all out." In the past he has made threats toward them due to his paranoia, evening carrying metal pipes/clubs in his car or patroling his property with a loaded gun (police confirmed guns confiscated previous stay which included multiple duties to warn). During his 2022 stay there was concern for recent use of Adderall if not meth amphetamine but currently denies an tox is negative. The patient is restless on the unit, gesturing in the air, talking loudly to himself then poor impulse control with touching doctor/peers and running in the hallway. He was convince there is a "buzzing object like a chip" in his ear. His tympanic membranes were visualized with with an otoscope and canals are clean and no fluid behind drum or exudate. He was reassured and then focussed on his Lantus which he demanded be given this pm and then every am. His attention span is so short there are significant concerns about his ability to manage insulin. He states that he stopped medication within the first month of discharge as "felt alright." Physical Exam Psychiatric See admission H&P and DOD assessment. Vital Signs (Past 24 Hours) Last Vital Signs Temp 35.9 C L 04/29/23 06:00 Pulse 83 04/29/23 06:46 Resp 16 04/29/23 06:00 BP 153/92 H 04/29/23 06:46 Pulse Ox 97 04/27/23 09:34 O2 Del Method Room Air 04/27/23 09:34 Principal Diagnosis bipolar I disorder Psychiatric Data See daily stay summary. In short, safety was maintained and the patient was superficially cooperative with care. His ability to engage in groups was limited by his short attention span and irritability around ongoing confinement on 72 hr hold pending family meeting/safety planning. He did eat, sleep, voice good understanding of his insulin regimen/diabetes management, and take medications as prescribed. He was much less restless and less pressured over the course of his stay. He did pace the hallways at times and appear to be talking to himself but was able to maintain reality focus in conversation and was able to self redirect his delusion about radio frequency waves in his brain. He has historically responded to Depakote and Zyprexa prn is helpful. Zyprexa was not scheduled due to history of hyperglycemia with regular use at a much higher dose. Given that he was improved, was not threatening, and was exhibiting good self care on the unit, he did not meet criteria for conversion to involuntary commitment. He refused to rescind his 72 hr notice and following his meeting with his he was discharged. Discussed the importance of follow up with the patient as he should have a Depakote level and repeat LFTs within the month. Reviewed his risk of recurrence of symptoms should he stop his medication prematurely. He denies substance use (confirmed by tox) as was provided a short supply of Ambien for prn use as charisse is still resolving and sleep issues worsen his charisse. He was not provided Ativan at discharge but it is effective prn for future use in structured settings. He contracted not to combine Ambien with alcohol or driving. He did not appear to be responding to internal stimuli or to be significantly impulsive at discharge. He should not drive if those symptoms recur or when using PRN medications. Day of Discharge Assessment Today the patient voices readiness for discharge. They note improvement in mood and deny thoughts to harm self or others. Thoughts are more organized and they are improved from admission. There is no evidence of psychosis. They agree to take mediations as prescribed and keep follow-up appointments. They are stable for discharge to outpatient level of care. Transition of Care Transition Of Care Record: was reviewed with the patient Advance Directives Advance Directives Information Provided: Yes Advance Directives: No Mental Health Advance Directive: No Advance Directives on File: No Living Will: No Power of Mat Maker: No Advance Directives Reason:: Declines as Mental Health Visit. Risk Factors Assessment Male: Yes : Yes Do You Have Access To A Gun?: No Mental Health Diagnoses: Yes Substance Use Disorders: Yes (hx, suspect) Previous Attempt: No Previous Psychiatric Hospitalization: Yes Protective Factors Assessment : Yes Employed: No Tobacco Cessation at Discharge Tobacco Cessation Medication Prescribed at Discharge: Not Applicable/Non-Smoker Total Time Total Time Spent: Greater Than 30 Minutes (48 min) Total Time Includes: Examination of the patient, Discharge Planning and Medication Reconciliation Discharge Data Lab Results 04/27/23 04/27/23 04/27/23 00:31 06:13 06:14 WBC RBC Hgb Hct MCV MCH MCHC RDW Std Deviation RDW Coeff of Denisse Plt Count MPV Immature Gran % (Auto) Neut % (Auto) Lymph % (Auto) Chase % (Auto) Eos % (Auto) Baso % (Auto) Neut # (Auto) Lymph # (Auto) Chase # (Auto) Eos # (Auto) Baso # (Auto) Immature Gran # (Auto) Sodium Potassium Chloride Carbon Dioxide Anion Gap POC Glucose Estimat Average Glucose Hemoglobin A1c Total Bilirubin Direct Bilirubin AST ALT Alkaline Phosphatase Total Protein Albumin Triglycerides Cholesterol LDL Cholesterol, Calc VLDL Cholesterol, Calc HDL Cholesterol Cholesterol/HDL Ratio Salicylates Urine Opiates Screen Neg Ur Methadone, Qual Neg Acetaminophen Urine Barbiturates Neg Ur Phencyclidine (PCP) Neg U Amphetamin/Meth Scrn Neg MDMA (Ecstasy) Screen Neg U Benzodiazepines Scrn Neg Ur Cocaine Metabolite Neg U Marijuana (THC) Screen Neg Ethyl Alcohol mg/dL < 10.0 SARS-CoV-2, RNA, NAAT NEGATIVE 04/27/23 04/27/23 04/27/23 07:33 16:24 22:00 WBC RBC Hgb Hct MCV MCH MCHC RDW Std Deviation RDW Coeff of Denisse Plt Count MPV Immature Gran % (Auto) Neut % (Auto) Lymph % (Auto) Chase % (Auto) Eos % (Auto) Baso % (Auto) Neut # (Auto) Lymph # (Auto) Chase # (Auto) Eos # (Auto) Baso # (Auto) Immature Gran # (Auto) Sodium Potassium Chloride Carbon Dioxide Anion Gap POC Glucose 248 H 97 Estimat Average Glucose Hemoglobin A1c Total Bilirubin Direct Bilirubin AST ALT Alkaline Phosphatase Total Protein Albumin Triglycerides Cholesterol LDL Cholesterol, Calc VLDL Cholesterol, Calc HDL Cholesterol Cholesterol/HDL Ratio Salicylates < 3.0 L Urine Opiates Screen Ur Methadone, Qual Acetaminophen < 3 L Urine Barbiturates Ur Phencyclidine (PCP) U Amphetamin/Meth Scrn MDMA (Ecstasy) Screen U Benzodiazepines Scrn Ur Cocaine Metabolite U Marijuana (THC) Screen Ethyl Alcohol mg/dL SARS-CoV-2, RNA, NAAT 04/28/23 04/28/23 04/28/23 07:37 08:29 12:31 WBC 7.09 RBC 3.70 L Hgb 11.7 L Hct 34.1 L MCV 92.2 MCH 31.6 MCHC 34.3 RDW Std Deviation 48.5 H RDW Coeff of Denisse 14.5 Plt Count 238 MPV 10.7 Immature Gran % (Auto) 0.4 Neut % (Auto) 62.3 Lymph % (Auto) 23.8 Chase % (Auto) 10.7 Eos % (Auto) 2.4 Baso % (Auto) 0.4 Neut # (Auto) 4.41 Lymph # (Auto) 1.69 Chase # (Auto) 0.76 H Eos # (Auto) 0.17 Baso # (Auto) 0.03 Immature Gran # (Auto) 0.03 Sodium 142 D Potassium 4.1 Chloride 111 H Carbon Dioxide 22 Anion Gap 9 POC Glucose 164 H 109 H Estimat Average Glucose 171 Hemoglobin A1c 7.6 H Total Bilirubin 0.5 D Direct Bilirubin 0.1 AST 45 H ALT 33 Alkaline Phosphatase 68 Total Protein 6.7 Albumin 4.1 Triglycerides 77 Cholesterol 188 LDL Cholesterol, Calc 78 VLDL Cholesterol, Calc 15 HDL Cholesterol 95 Cholesterol/HDL Ratio 2.0 Salicylates Urine Opiates Screen Ur Methadone, Qual Acetaminophen Urine Barbiturates Ur Phencyclidine (PCP) U Amphetamin/Meth Scrn MDMA (Ecstasy) Screen U Benzodiazepines Scrn Ur Cocaine Metabolite U Marijuana (THC) Screen Ethyl Alcohol mg/dL SARS-CoV-2, RNA, NAAT 04/28/23 04/28/23 04/29/23 16:35 20:38 08:11 WBC RBC Hgb Hct MCV MCH MCHC RDW Std Deviation RDW Coeff of Denisse Plt Count MPV Immature Gran % (Auto) Neut % (Auto) Lymph % (Auto) Chase % (Auto) Eos % (Auto) Baso % (Auto) Neut # (Auto) Lymph # (Auto) Chase # (Auto) Eos # (Auto) Baso # (Auto) Immature Gran # (Auto) Sodium Potassium Chloride Carbon Dioxide Anion Gap POC Glucose 118 H 139 H 149 H Estimat Average Glucose Hemoglobin A1c Total Bilirubin Direct Bilirubin AST ALT Alkaline Phosphatase Total Protein Albumin Triglycerides Cholesterol LDL Cholesterol, Calc VLDL Cholesterol, Calc HDL Cholesterol Cholesterol/HDL Ratio Salicylates Urine Opiates Screen Ur Methadone, Qual Acetaminophen Urine Barbiturates Ur Phencyclidine (PCP) U Amphetamin/Meth Scrn MDMA (Ecstasy) Screen U Benzodiazepines Scrn Ur Cocaine Metabolite U Marijuana (THC) Screen Ethyl Alcohol mg/dL SARS-CoV-2, RNA, NAAT 04/29/23 12:21 WBC RBC Hgb Hct MCV MCH MCHC RDW Std Deviation RDW Coeff of Denisse Plt Count MPV Immature Gran % (Auto) Neut % (Auto) Lymph % (Auto) Chase % (Auto) Eos % (Auto) Baso % (Auto) Neut # (Auto) Lymph # (Auto) Chase # (Auto) Eos # (Auto) Baso # (Auto) Immature Gran # (Auto) Sodium Potassium Chloride Carbon Dioxide Anion Gap POC Glucose 139 H Estimat Average Glucose Hemoglobin A1c Total Bilirubin Direct Bilirubin AST ALT Alkaline Phosphatase Total Protein Albumin Triglycerides Cholesterol LDL Cholesterol, Calc VLDL Cholesterol, Calc HDL Cholesterol Cholesterol/HDL Ratio Salicylates Urine Opiates Screen Ur Methadone, Qual Acetaminophen Urine Barbiturates Ur Phencyclidine (PCP) U Amphetamin/Meth Scrn MDMA (Ecstasy) Screen U Benzodiazepines Scrn Ur Cocaine Metabolite U Marijuana (THC) Screen Ethyl Alcohol mg/dL SARS-CoV-2, RNA, NAAT Hospital Course (1) Bipolar affective disorder, current episode manic: Plan 04/28/2023: continue current medications and treatment plan--patient agreeable to remain hospitalized pending family meeting for support and discharge planning. 04/27/2023: The patient was admitted to the [facility] (locked inpatient mental health unit) on q15 min checks (behavioral with suicide precautions) for safety. The patient will participate in group, recreational, and milieu therapies and will be offered additional individual and family sessions as clinically appropriate. The patient signed a 72 hour notice upon arrival to the unit. He is willing to stay for additional treatment and monitoring just likes to know the "clock is ticking." repeat CBC, Na, LFTs in am with fasting lipids and HqbA1C. Zyprexa 5 mg prn, cannot advise for regular use despite the fact 20 mg was helpful for charisse as hx of hyperglycemia. glycemic management by pharmacy. he was agreeable to resume Depakote as previously effective, will need to monitor trends in LFTs but less likely to impact sugars or renal function than other options. Ativan 1 mg prn acute charisse as well. Mental Health & Subst Abuse Tx Psychiatrist Name of Psychiatrist: Maribel Joaquin PA-C Psychiatrist's Therapist Name of Therapist: [facility] Therapist's Cell Pourer Name of Cell Pourer: None Post Discharge Appointments Primary Care Physician Name Of Family Doctor/PCP: Dr. Irving Bonilla Primary Care Smoking Cessation Counseling Tobacco Cessation Medication Prescribed at Discharge: Not Applicable/Non-Smoker Contact Information Discharge Discharge Address: [address] [place] [id number] Discharge Plan Discharge Items Patient Disposition: Home - Self-Care Reason For Visit: MHE Discharge Diagnosis: bipolar I disorder Activity: Resume your previous activity Non-emergency contact: Primary Care Provider Call non-emergency contact if: you have any medication questions and your symptoms worsen Follow-up/Referrals: Irving Bonilla M.D. [Primary Care Provider] - Diet: Regular Addtl Attending Provider Instructions: SPECIAL CARE INSTRUCTIONS: 1. Follow through with your scheduled aftercare appointments. If unable to keep an appointment, please call to reschedule. 2. Take your medication only as prescribed. Medication should not be changed or stopped without the approval of your doctor. In the event of worsening symptoms or concerns about side effects, contact your doctor immediately. 3. Utilize new healthy coping skills, anger management skills, and stress management skills learned during your hospitalization. Journal feelings and process them with a support person. Identify stressors or situations that may result in relapse, deterioration or inappropriate behaviors and develop a plan to deal with those issues. 4. If your coping skills are ineffective and you are in crisis, contact your outpatient providers for direction. If unable to reach your providers, please call the [facility] CRISIS LINE AT , go to the [facility] walk-in center at [address], [place], or go to the closest Emergency Room. 5. Avoid alcohol and un-prescribed drugs. 6. You have been provided with the Mental Health Advance Directives Pamphlet for your review. 7. Your condition is stable for discharge to outpatient level of care, but recovery is an ongoing process. Ifthoughts to harm yourself or others return, follow the safety plan developed during your stay. Planning for a safe return home includes securing weapons. Our treatment team recommends weaponsbe removed from the home until your outpatient provider reassesses your progress. In rare cases where the items themselvescannot be removed, guns and ammunitionshould be secured separatelyand keys stored by a reliable personoutside of the home. If you were admitted on an involuntary commitment, the police or other legal authorities may be involved in this process. AFTERCARE APPOINTMENTS: * Please call your insurance company prior to your scheduled appointment to confirm your aftercare providers are covered. Take your insurance information to your appointments. WHO TO CALL AND WHEN: Medical Emergencies: For questions or emergencies related to your hospital stay, please contact the Inpatient Behavioral Health Unit at [phone]. A press technician is on-call 31/08 for the Behavioral Health Unit for emergencies At any time you feel your situation is an emergency, you may also call 911 immediately. Pending Studies at Discharge: Yes Studies:: you will need a Depakote level, repeat LFTs at the discretion of outpatient provider, it could not be drawn here as your stay was less than 5 days Stand-Alone Forms: [employer], Smoking Cessation Medications and DC Order Prescriptions: New divalproex 500 mg tablet extended release 24 hr 1,000 mg PO DAILY Qty: 60 0RF olanzapine 5 mg Tablet 5 mg PO Q6 PRN (Reason: Anxiety) Qty: 30 0RF zolpidem [Ambien] 10 mg tablet 10 mg PO HS PRN (Reason: insomnia) Qty: 14 0RF Continued (DME) blood-glucose meter [True Metrix Glucose Meter] Misc See Rx Instructions .ROUTE .MEDSUPPLY Qty: 100 3RF Rx Instructions: use to test 1 time daily (DME) True Metrix Glucose Test Strip Strip See Rx Instructions .ROUTE .MEDSUPPLY Qty: 100 3RF Rx Instructions: test 1 time daily (DME) Dexcom G6 Transmitter Device See Rx Instructions .MEDSUPPLY Qty: 1 3RF Rx Instructions: Use as directed for continuous glucose monitoring - change every 90 days (DME) Dexcom G6 Senior Sql Developer Misc See Rx Instructions .MEDSUPPLY Qty: 1 0RF Rx Instructions: Use as directed for continuous glucose monitoring (DME) Dexcom G6 Sensor Device See Rx Instructions .MEDSUPPLY Qty: 9 3RF Rx Instructions: Use as directed for continuous glucose monitoring - Change sensor every 10 days insulin glargine [Lantus Solostar U-100 Insulin] 100 unit/mL (3 mL) insulin pen 20 unit SUBCUT DAILY Qty: 30 1RF lisinopril 20 mg tablet 20 mg PO DAILY Qty: 90 1RF Rx Instructions: Take with 10 mg tab aspirin [Adult Aspirin Regimen] 81 mg tablet,delayed release (DR/EC) 81 mg PO DAILY insulin aspart U-100 100 unit/mL (3 mL) insulin pen 1 sliding scale dose subcut USEASDIRECTD Qty: 15 0RF Discontinued zolpidem 5 mg Tablet 10 mg PO HS Qty: 0 0RF Discharge Orders: Discharge Order (Routine); Ordered 04/29/23 Ordered By: Nickie Goetz Admission Data Admit Date/Time: 04/27/23 09:00 Attending Provider: Nickie Goetz Admit Provider: Nickie Goetz Primary Care Provider: Irving Bonilla Other Interventions: Discharge Summary Assessment (RN) Last Done: 04/29/23 13:04 PSY Interdisciplinary Discharge Planning Last Done: 04/29/23 13:33 Coding Level of Care Code 09874 D/C day mgmt > 30 min Diagnoses Bipolar affective disorder, current episode manic F31.10
== END 2023-04-29 13:55 | disposition home or self-care (01) | DRG 885 ==
LOC: ED 04:08 → 3S 09:00